=== PATIENT | male | born 1990 | race Caucasian/White ===

== ENCOUNTER 2017-04-29 10:58 | Emergency (ER) | payer BC, SELFPAY ==
[2017-04-29 11:02] VITALS: BP 142/73; PULSE 104; RESP 16; TEMP 36.6; O2SAT 96; BMI 23.8
--- NOTE | 2017-04-29 11:19 | CT_ITS ---
STUDY: CT ABDOMEN AND PELVIS WITH CONTRAST REASON FOR EXAM: Male, 26 years old. Abdominal pain. Bloody stools. RADIATION DOSAGE (If Supplied By Facility): CTDIvol = ( 11.08 ) mGy, DLP = ( 460.28 ) mGycm TECHNIQUE: Transaxial images were obtained from the dome of the diaphragm to the symphysis pubis with oral contrast. 100ML ml of Isovue 300 contrast was administered. Sagittal and coronal images were reconstructed. Individualized dose optimization techniques were used for this CT. COMPARISON: None. FINDINGS: The visualized lung bases are unremarkable. The visualized portions of the heart are within normal limits. Normal liver. Normal gallbladder and extrahepatic biliary system. Normal spleen. Normal pancreas. Normal bilateral adrenal glands. Normal right kidney. Normal left kidney. There is a small hiatal hernia. Normal small intestine. There is evidence of circumferential wall thickening of the descending colon with increased markings in the surrounding peritoneal fat. Mild degree of increased markings in the surrounding peritoneal fat in the region of the sigmoid colon. This is in keeping with colitis. The appendix is visualized and appears normal. Normal abdominal aorta. Normal inferior vena cava. Normal retroperitoneum. Normal urinary bladder. Normal abdominal wall. Normal osseous structures. CT/Abdomen/Pelvis WITH Contrast IMPRESSION: Findings in keeping with a colitis of the left hemicolon. Electronically Signed: Brodie Freitas MD at 14:04 EST Tel [phone], Service support ,
--- NOTE | 2017-04-29 11:20 | ED.VISSUMM ---
- ER Visit Summary Date of Service: 04/29/17 Chief Complaint: Blood in stool History of Present Illness: The patient is a 26 M presenting with blood in stool. This occurred last night. He has had several episodes of loose stool. He had some straining with this. He had nausea without vomiting. He complains of diffuse abdominal cramping. He states he has history of IBS. He states he has been on multiple medications but has not found medication that has worked for him. He has seen GI in the remote past. Physical Examination: Vitals are stable. Patient is afebrile. Alert no acute distress. HEENT exam is unremarkable. Neck is supple. Lungs are clear and equal bilaterally. Heart is regular rate and rhythm. Abdomen is soft diffuse tenderness, no rebound or guarding. Rectal: no external hemorrhoids, normal tone, no gross blood Extremities are unremarkable. Skin is warm and dry. Remainder of exam is unremarkable. Emergency Department Course and Treatment: He was given IV fluids, Zofran, morphine with improvement. CBC, chemistries unremarkable. Stool guaiac is negative. CT abdomen pelvis shows colitis of the left hemicolon. He is given Cipro and Flagyl. He is given Dr. Sherman for follow-up. On repeat exam his abdomen is soft and nontender with no rebound or guarding. He is feeling improved. He is advised signs and symptoms for which to return to the ED. Disposition: Discharge home Impression: Colitis This note was generated with [employer] dictation software. It may contain incorrect words, spelling, and punctuation that were not noted in review of the chart prior to signing ED Disposition - Plan for ED Patient: Chief Complaint: GI Bleed Referrals: NOT,DEFINED [NON-STAFF] -
[2017-04-29] MEDS: 0.9% Normal Saline 1,000 ML 1000 ML IV (11:31)
[2017-04-29] MEDS: Ondansetron 4 MG/2 ML Vial IV (11:31)
--- NOTE | 2017-04-29 11:39 | ED.RN ---
BASSAM SOLO,MEDIC WAS STARTING PT'S IV, PT BECAME NAUSEATED, CLAMMY SKIN, PALE, COOL COMPRESSES APPLIED, PT GOWN CHANGED DUE TO DIAPHORESIS BP AT THIS TIME 149/71, PT LYING IN BED CHEEKS PINK AT THIS TIME.
[2017-04-29 11:42] LABS: Absolute Lymphocyte Count 1.48 X10^3/ul (0.83-4.51); Absolute Neutrophil Count 5.9 X10^3/uL (2.0-7.7); Basophil# 0.05 X10^3/uL; Basophil% 0.6 % (0-1); Eosinophil# 0.25 X10^3/uL; Eosinophils% 2.9 % (0-5); Hematocrit 47.7 % (40-54); Hemoglobin 16.6 g/dl (13.0-16.5); Lymphocyte # 1.48 X10^3/ul (4.0); Lymphocyte % 17.2 % (19-41); Mean Corp Hgb Conc 34.8 g/gl (32-36); Mean Corpuscular Hgb 30.9 pg (27.0-32.0); Mean Corpuscular Volume 88.7 fL (80-94); Mean Platelet Vol. 10.9 fl (6.2-12.0); Monocyte# 0.95 X10^3/uL; Neutrophil # 5.86 X10^3/uL (2.7-7.7); Neutrophil % 68.2 % (47-70); Platelet Count 175 K/mm3 (150-450); RBC Distribution Width CV 12.6 % (11.6-14.6); Red Blood Count 5.38 M/mm3 (4.6-6.2); White Blood Count 8.6 K/mm3 (4.4-11.0)
[2017-04-29 11:43] LABS: POSITIVE COUNT NO; POSITIVE DIFFERENTIAL NO; POSITIVE MORPHOLOGY NO
[2017-04-29 11:48] LABS: Anion Gap 6 (5-15); BUN 12 mg/dL (7-18); BUN/Creat Ratio 11.2 RATIO (10-20); Calcium,Total 9.5 mg/dL (8.5-10.1); Chloride 103 mmol/L (98-107); Creatinine, Serum 1.07 mg/dL (0.70-1.30); EST Glomerular Filtration Rate 88 mL/min (>60); Est Glom Filt Rate - Afr Amer 107 mL/min (>60); Estimated Creatinine Clearance 97.81 ml/min; Glucose 90 mg/dL (74-106); Potassium 4.2 mmol/L (3.5-5.1); Sodium Level 139 mmol/L (136-145)
[2017-04-29 11:56] LABS: Partial Thromboplast Time 30.1 Seconds (24.1-36.2)
[2017-04-29 13:27] VITALS: BP 140/67; PULSE 88; RESP 16; O2SAT 96
--- NOTE | 2017-04-29 15:22 | ED.DEP ---
ED Disposition - Plan for ED Patient: Chief Complaint: GI Bleed Instructions: ED IBS Prescriptions: Ondansetron [Zofran Odt] 4 mg PO Q8H PRN PRN #10 tablet PRN Reason: Nausea Metronidazole [Flagyl] 500 mg PO Q8 #21 tablet Ciprofloxacin [Cipro] 500 mg PO BID #14 tablet Referrals: NOT,DEFINED [NON-STAFF] - Rodrigo Sherman MD [STAFF PHYSICIAN] - Balaji Sandhu III, MD [STAFF PHYSICIAN] -
[2017-04-29 15:33] VITALS: BP 135/70; PULSE 82; RESP 16; O2SAT 98
[2017-04-29 15:34] VITALS: BP 135/70; PULSE 82; RESP 16; O2SAT 98
[2017-04-29] MEDS: Ciprofloxacin 500 MG Tablet PO (15:36)
== END 2017-04-29 15:40 | disposition home or self-care (01) ==
PROVIDERS: Emergency Provider Emergency Medicine
DX: K52.9 Noninfective gastroenteritis and colitis, unspecified (principal); R11.0 Nausea
CPT/HCPCS: 74177; 80048; 82274; 85025; 85730; 96361; 96374; 96375; 99284; J7030; Q9967; A4216; J2405

== ENCOUNTER → 2017-05-08 14:41 | Outpatient (CLI) | payer BC, SELFPAY ==
[2017-05-08 16:18] LABS: CRP < 2.90 mg/L (0.0-3.0)
[2017-05-10 16:09] LABS: Endomysial Antibody IgA Negative (Negative)
[2017-05-11 08:31] LABS: Immunoglobulin A 159 mg/dL (90-386); t-Transglutaminase IgA <2 U/mL (0-3)
== END ==
PROVIDERS: Visit Provider Internal Medicine Gastroenterology
DX: R10.9 Unspecified abdominal pain (principal); R19.7 Diarrhea, unspecified
CPT/HCPCS: 36415; 82784; 83516; 86140; 86255

== ENCOUNTER → 2017-05-10 16:20 | Outpatient (CLI) | payer BC, SELFPAY ==
--- NOTE | 2017-05-10 13:03 | COLBX_PTH ---
PATIENT: RENEE GILES LOC: [facility] U#:[id number] AGE/SX: 34/M ROOM: RE05/10/[address]: Dr. Rodrigo Sherman MD : 1990 BED: DIS: SPEC #: [id number] RECD: 05/10/17 15:48 STATUS: MARIAM IVY #: [id number] REGGIE: 05/10/17 13:[address]: Rodrigo Sherman DEPT: SURGICAL PATHOLOGY RECD BY: Andrea Sharma ENTERED: 05/13/17 08:07 SP TYPE: COLON BX OTHR DR: No Primary Care Phys [facility] Tissues: A - Ileum, NOS B - COLON BIOPSY C - Sigmoid colon biopsy Procedures: Surgery Specimen Level IV HEADER OPERATION: Colonoscopy with polypectomy PRE-OP DIAGNOSIS: Diarrhea TISSUE SUBMITTED: A ? Terminal ileum biopsies, rule out Crohn?s, B ? Right and left colon biopsies, rule out microscopic colitis, C ? Sigmoid polyp, rule out adenoma MICROSCOPIC DIAGNOSIS A. Terminal ileum, biopsy: Fragments of small intestinal mucosa, no pathologic diagnosis. B. Right and left colon, biopsy: Fragments of colonic mucosa, no pathologic diagnosis. C. Sigmoid polyp, polypectomy: Tubular adenoma. Fragments of fecal material. DOMINGUEZ:nancy 05/14/17 MICROSCOPIC DESCRIPTION Slides are reviewed. GROSS DESCRIPTION A - Received in fixative is one container labeled with the patient's name and designated terminal ileum biopsy. The specimen consists of multiple irregular fragments of light irwin soft tissue that in aggregate measure 1 x 0.2 x 0.1 cm. The specimen is totally submitted in one cassette. B - Received in fixative is one container labeled with the patient's name and designated right and left colon biopsy. The specimen consists of multiple irregular fragments of light irwin soft tissue that in aggregate measure 1.5 x 0.2 x 0.1 cm. The specimen is totally submitted in one cassette. C - Received in fixative is one container labeled with the patient's name and designated sigmoid polyp. The specimen consists of one irregular fragment of light irwin soft tissue that measures 0.2 x 0.2 x 0.1 cm. The specimen is totally submitted in one cassette. / DOMINGUEZ:nancy 05/13/17 TC:1 CPT: 78600 x3
== END ==
PROVIDERS: Visit Provider Internal Medicine Gastroenterology
DX: R19.7 Diarrhea, unspecified (principal)
CPT/HCPCS: 88305

== ENCOUNTER 2019-01-27 05:22 | Emergency (ER) | payer BC, SELFPAY ==
[2019-01-27 05:23] VITALS: BP 141/96; PULSE 65; RESP 16; TEMP 36.5; O2SAT 98; BMI 24.6
[2019-01-27 05:32] VITALS: TEMP 36.5
--- NOTE | 2019-01-27 05:34 | ED.RN ---
PT STATES HE HAS THOUGHTS ABOUT HURTING HIMSELF BUT HAS NEVER ACTED ON THEM, HE STATES HE DOES NOT HAVE A PLAN, HAS NEVER ATTEMPTED SUICIDE IN THE PAST, AND SEES A COUNSELOR FOR THE THOUGHTS. HIS MEDICATIONS WERE CHANGED YESTERDAY FROM GABAPENTIN TO PAXIL PART OF HIS TREATMENT.
[2019-01-27] MEDS: 0.9% Normal Saline 1,000 ML 1000 ML IV (05:53)
[2019-01-27] MEDS: Ondansetron 4 MG/2 ML Vial IV (05:53)
--- NOTE | 2019-01-27 06:03 | ED.VISSUMM ---
- ER Visit Summary Date of Service: 01/27/19 Chief Complaint: Vomiting and diarrhea History of Present Illness: The patient is a 28 M who states that this past Saturday he went out and drink alcohol. The of the night he was vomiting. Vomiting continued Saturday and Saturday. He states that he was unable to work yesterday. In the overnight hours he began to have diarrhea today. Denies any blood in the vomit or the stool. No fevers but does note that he has been waking up with sweats. He states he has a lot of anxiety and sees a counselor for that. This is making things very stressful for him. 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 Sherman and has had 2 colonoscopies. He denies any significant abdominal pain but does note some cramping prior to bowel elimination Physical Examination: Afebrile vital signs are stable Gen: Well-nourished well-developed Head: Normocephalic atraumatic Eyes: Perrl EOMI ENT: TMs clear no rhinorrhea moist mucous membranes Neck: Supple no lymphadenopathy no JVD nontender CVS: Regular rate rhythm no murmurs normal S1-S2 Respiratory: No distress clear to auscultation bilaterally chest nontender Abdomen: Soft nontender nondistended normal bowel sounds no masses Back: Nontender Extremity: Nontender no edema Skin: Normal color no rash Neuro: alert orientated ?3 CN II-XII intact normal strength sensation reflexes gait cerebellar Psych: Patient does appear anxious. No suicidal ideation or homicidal Test Results: CBC was normal. Chemistries normal. Liver enzymes showed an ALT of 62 lipase was 110. Emergency Department Course and Treatment: IV fluids and Zofran. Patient states that with his anxiety he thinks that that is most likely cause of his vomiting his diarrhea that may be a may also be viral. They are wondering about other anxiolytics. He currently sees somebody for his anxiety and depression in fact saw them yesterday and was started on Paxil. I will defer to them they want to start pill in the pocket medications like Xanax or Ativan. The interim I will write for Zofran and would recommend Imodium. Continued oral hydration. Patient called me back into the room and states he does not feel any better than when he came in. I will give him a dose of Ativan here. But again I will not be prescribing this on an outpatient basis. Impression: 1. Gastroenteritis 2. Generalized anxiety disorder This note was generated with [employer] dictation software. It may contain incorrect words, spelling, and punctuation that were not noted in review of the chart prior to signing ED Disposition - Plan for ED Patient: Disposition: Home or Assisted Living Instructions: VOMITING AND DIARRHEA, Nonspecific (Adult) Prescriptions: Ondansetron [Zofran Odt] 4 mg PO Q8H PRN PRN #14 tab PRN Reason: Nausea Prescription Printed Referrals: Balaji Sandhu III, MD [STAFF PHYSICIAN] - (as needed for primary care)
[2019-01-27 06:05] LABS: Absolute Lymphocyte Count 2.31 X10^3/uL (0.83-4.51); Basophil# 0.06 X10^3/uL; Basophil% 0.7 % (0-1); Eosinophil# 0.22 X10^3/uL; Eosinophils% 2.7 % (0-5); Hematocrit 51.8 % (40-54); Hemoglobin 17.5 g/dL (13.0-16.5); Lymphocyte # 2.31 X10^3/ul (4.0); Lymphocyte % 27.9 % (19-41); Mean Corp Hgb Conc 33.8 g/dL (32-36); Mean Corpuscular Volume 88.9 fL (80-94); Mean Platelet Vol. 10.6 fl (6.2-12.0); Monocyte# 0.64 X10^3/uL; Monocyte% 7.7 % (0-10); NRBC Flagged by Analyzer 0 % (0-5); Neutrophil # 5.02 X10^3/uL (2.7-7.7); Neutrophil % 60.6 % (47-70); Platelet Count 212 K/mm3 (150-450); RBC Distribution Width SD 38.7 fl (35.1-43.9); Red Blood Count 5.83 M/mm3 (4.6-6.2); White Blood Count 8.3 K/mm3 (4.4-11.0)
[2019-01-27 06:23] LABS: AST(SGOT) 20 U/L (15-37); Alanine Aminotransfer ALT/SGPT 62 U/L (16-61); Albumin, Serum 4.5 g/dL (3.2-5.0); Alkaline Phosphatase 67 U/L (45-117); Anion Gap 5 (5-15); BUN 15 mg/dL (7-18); BUN/Creat Ratio 13.5 RATIO (10-20); Calcium,Total 9.5 mg/dL (8.5-10.1); Chloride 105 mmol/L (98-107); Creatinine, Serum 1.11 mg/dL (0.70-1.30); EST Glomerular Filtration Rate 84 mL/min (>60); Est Glom Filt Rate - Afr Amer 101 mL/min (>60); Estimated Creatinine Clearance 92.63 ml/min; Globulin 3.8 g/dL (2.2-4.2); Glucose 104 mg/dL (74-106); Lipase 110 U/L (73-393); Potassium 3.6 mmol/L (3.5-5.1); Protein, Total 8.3 g/dL (6.4-8.2); Sodium Level 140 mmol/L (136-145)
[2019-01-27] MEDS: LORazepam 2 MG/ML Syringe 1 MG IV (07:04)
[2019-01-27 07:19] VITALS: BP 136/77; PULSE 76; RESP 18; O2SAT 99
== END 2019-01-27 07:54 | disposition home or self-care (01) ==
PROVIDERS: Emergency Provider Emergency Medicine
DX: K52.9 Noninfective gastroenteritis and colitis, unspecified (principal); F41.1 Generalized anxiety disorder; F32.9 Major depressive disorder, single episode, unspecified
CPT/HCPCS: 80048; 80076; 83690; 85025; 96361; 96374; 96375; 99283; J7030; A4216; J2405

== ENCOUNTER 2019-01-30 09:00 | Outpatient (RCR) | payer BC, SELFPAY ==
--- NOTE | 2019-01-30 09:05 | BH.SGPN.GN ---
Behaviors/Verbalizations/Mental Status: [] Eye contact is good. Motor activity is appropriate. Appearance is casual. Speech is Appropriate. Mood is anxious. Affect is congruent. Thoughts are linear and logical. No evidence of psychosis. Reviewed daily check in sheet and no reports of suicidal ideations or intent. Client Response/Progress/Benefit: [] Pt spoke when prompted. This was pt's first group in IOP. He introduced himself to the group and stated that he was in IOP to help with his anxiety and depression. Discussed how his emotions have impacted his daily functioning stating this is my last resort. Group was welcoming and provided some feedback and encouragement. No progress noted. Will continue in IOP to maintain safety, improve functioning, stabilize mood, and prevent decompensation. Narrative Note: []
--- NOTE | 2019-01-30 11:25 | BH.SGPN.GN ---
Behaviors/Verbalizations/Mental Status: []Client alert and oriented, neatly dressed and groomed. Eye contact good. Motor activity appropriate. Speech within normal limits. Affect constricted, mood anxious. Thoughts linear, logical, no signs of hallucinations or delusions. Client Response/Progress/Benefit: []Client responded well to session, engaged throughout and providing ideas during group brainstorming. Client appeared to connect with the activity from second group and helped the group identify benefits of having a strong foundation of internal and external coping skills. Client shared he currently is relying mainly on external supports and recognizes he needs healthier internal coping skills. Client reported he is an ?adrenaline junky? so some of his coping skills in the past have been unhealthy. Client helped the group discuss the different categories of coping skills and provided examples. Client reported it is important to have a variety of coping skills. Client created a coping skills ?menu? for the five categories of coping skills. Client selected listening to music, doing something he?s passionate about, playing with pets, positive self-talk, and asking himself ?would I say this to someone I love.? Client appeared to benefit from increasing his repertoire of healthy coping skills. Client?s first day of IOP. Will continue to prevent decompensation and learn healthy coping skills. Narrative Note: []
--- NOTE | 2019-01-30 12:37 | BH.COMM ---
Communication Note - Communication with Client Communication Note: met with pt to complete inital paperwork. Completed [place] Suicide Risk assessment. No imminent risk noted. No active suicidal ideations, plan, or intent. Motivated for treatment. Hopeful. Spoke with pt after 1st day in IOP. No concerns noted. Agreeable to return and felt first day was beneficial. Will meet with psychiatrist next business day.
--- NOTE | 2019-01-30 20:00 | BH.SGPN.GN ---
Behaviors/Verbalizations/Mental Status: [] Eye contact is good. Motor activity is appropriate. Appearance is casual. Speech is Appropriate. Mood is anxious. Affect is congruent. Thoughts are linear and logical. No evidence of psychosis. Client Response/Progress/Benefit: [] Pt was attentive during group discussion and was an active participant in group activity. Attentive during psycho-education. Worked with peers to define coping skills which included; skills to use to get us through difficult times, techniques to manage emotions, and reactions to lessen an emotional state. Group also worked together to identify how we learn our coping skills through up-bringing, habits, watching our support, trial/error, TV, and counseling. Group discussed that not all coping skills are healthy and identified common unhealthy coping skills such as; isolating, avoidance, substance abuse, using anger as a release, self-harm, reassurance-seeking, sleep, eating, and negative self-talk. Pt participated in group activity with peers. After the group they related the activity to coping skills stating that when developing coping skills it is important to have both internal and external coping skills to help. Pt benefited from increased insight and education on healthy vs unhealthy coping and internal vs external coping skills. Narrative Note: []
--- NOTE | 2019-02-02 09:05 | BH.SGPN.GN ---
Behaviors/Verbalizations/Mental Status: [Eye contact is fair to good. Motor activity is appropriate. Appearance is casual. Speech is Appropriate rate and tone. Mood is anxious, depressed. Affect is congruent. Thoughts are linear and logical. No evidence of psychosis. Reviewed daily check in sheet and pt reports SI as a 1/5 denies any active plan, or intent. Will follow-up with individual therapist for further assessment. ] Client Response/Progress/Benefit: [Pt responded well to session, engaged throughout and open to processing with the group. Pt indicated current emotion as ?hopeful? and discussed that this is because he is happy to finally be addressing his mental health problems and seek help. 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 Pt noted that he was able to make it through without doing so by drinking water and reminding himself of his goals for himself. Pt went on to identify this as a mental health win and shared an additional win as getting to work this morning without a problem as this has been difficult in the past. Pt appeared to benefit from support and structure of group environment. Expressed connecting with fellow participants struggling with similar stressors and noted relating to difficulties in coping during the Holiday season. Shared plans to spend time with his cousin to prevent unhealthy coping. Pt progress noted in application of calming skills. He is recommended continued IOP tx to prevent decompensation, decrease depression, and promote ongoing application of healthy internal coping skills.] Narrative Note: []
--- NOTE | 2019-02-02 10:10 | BH.SGPN.GN ---
Behaviors/Verbalizations/Mental Status: []Client alert and oriented, casually dressed and groomed. Eye contact good. Motor activity appropriate. Speech within normal limits. Affect congruent, mood anxious. Thoughts linear, logical, no signs of hallucinations or delusions. Client Response/Progress/Benefit: []Client responded well to session, taking notes and contributing to discussion at times. Client connected with the group topic of crisis and did well to work with group to define crisis. Group identified examples of potential crisis to include unexpected loss, , and hardships out of one?s control. Client reported the smallest thing could send someone into crisis. Connected with discussion on how coping with external crisis by using unhealthy coping skills could lead to personal crisis. Group identified unhealthy coping skills to include; substance use, unhealthy relationships, not eating, avoidance, outbursts, and risk-taking behaviors. Group identified warning signs for crisis which included; isolating, loss of functioning, not finding darrell in life, and self-harm. Client completed the personal warning signs worksheet and identified crisis warning signs to include; negative thinking, substance abuse, and loss of motivation. Benefited from group by increasing awareness of crisis and personal warning signs. Client?s second day of IOP. Will continue to prevent decompensation and increase healthy coping skills. Narrative Note: []
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
--- NOTE | 2019-02-02 12:09 | BH.DR.ITP ---
Initial Treatment Plan - Patient Information Visit Information: ADMISSION DATE: EXPECTED LOS: 4-6 weeks - Problems/Symptoms Problem #1:: Anxiety Symptom:: Rumination, panic attacks, nausea and vomiting Problem #2:: Depression Symptom:: Sadness, fleeting SI, passive thoughts of . decreased energy and fatigue
--- NOTE | 2019-02-02 13:18 | BH.MDN_ITS ---
Multi-Disciplinary Note - Note 30-min Individual Time Started:: 12:10 Date: 02/02/19 Purpose of session/treatment goals addressed:: The purpose of this session was to gather information on client's current stressors, symptoms, and treatment goals. Another goal was to build rapport. Eye Contact:: Fair Motor Activity:: Appropriate Appearance:: Casual Speech:: Appropriate Mood:: Anxious Affect:: Constricted Thoughts:: Linear, Logical, No evidence of hallucinations/delusions noted Staff Interventions:: Therapist used active listening and open-ended questions to explore client's current stressors, symptoms, history, and treatment goals. Therapist used strengths perspective to build rapport and help client identify personal resilience factors. Client Response:: Client responded well to session, open to meeting with therapist. Client reported he is starting to feel better this week and reports belief that his mind is starting to get clearer. Client shared last week he abruptly quit smoking marijuana, drinking, and taking his gabapentin. As a result, client's anxiety became much worse and he ended up going to the ER. Client shared he was using marijuana to self-medicate, but now client realizes that it was only making his anxiety and ruminations worse. Client reported he does not plan to return to smoking, and he wants to learn healthier coping skills. Client shared he has a motivated mindset and reported when I make my mind up, I go all in on it. Client shared his mind can either be a positive or negative force. Client stated he has been able to motivate himself with his thinking, but he is also an overthinker about everything. Client connected with rumination and intrusive thinking. Client reported a previous therapist thought client maybe had pure obsessional OCD. Client stated that smoking mariju janina only made his ruminations and intrusive thoughts worse. Client receptive to discussion of treatment goals and he reported being open to having therapy homework in future sessions. Risks/Concerns:: Client reports last week having suicidal ideations when his anxiety was at its worst. Client described the thoughts as it wasn't like I had a plan, I just wanted out. Client denies any suicidal ideations, plan, or intent as of 02/02/19. Future oriented and hopeful for his future. Progress Toward Goals/Plan:: Due to client recently starting IOP, there is no progress to document currently. Client endorses anxiety, rumination, obsessive thoughts, passive thoughts of , a depressed mood, and low motivation. Client recently quit using marijuana which led to an exacerbation of anxiety and depressive symptoms within the last week. Client reported belief he was going through withdrawal last week as he stopped drinking, his gabapentin, and ma rijuana. Client identified his treatment goals to be learning how to cope with life stressors, reduce his overthinking, and improve motivation and become more optimistic. Will continue tx to prevent further decompensation, increase use of healthy coping skills, and reduce anxiety. Time Stopped:: 12:30
--- NOTE | 2019-02-02 13:51 | BH.MTP_ITS ---
Master Treatment Plan - Patient Information Program Physician:: Luma Meneses Primary Therapist:: Silvia Palma - Psychiatric Diagnoses Psychiatric Diagnoses:: Generalized anxiety disorder F41.1; major depressive disorder recurrent severe without psychosis F 33.2; marijuana withdrawal syndrome; Alcohol use disorder; marijuana use disorder Diagnosis Code(s):: F41.1; F33.2 - Estimated LOS Estimated LOS (in weeks):: 6 Problem/Goal #1 - Problem/Goal #1 Stated Goal:: Reduce overall frequency, intensity, and duration of anxiety and panic so that daily functioning is not impaired. Description of Barriers: Client reports having unrealistic, perfectionistic thinking which reinforces client's fear of failure. Client endorses negative core beliefs that reinforce depressive symptoms and cause low self-esteem. Client is recently sober from marijuana and alcohol. Client self-medicated for years and recognizes that he is addicted to dopamine. Client has kept his mental symptoms from his friends and stated he has beliefs that he should be able to solve problems on his own. Functional Impact: Client is a 28-year-old male with a history of MDD and STORMY. Client was referred to IOP following a crisis assessment on 01/28/19. Client had a crisis assessment due to overwhelming anxiety when client presented to the ER. Client reported he has been decompensating for the two weeks. Client currently endorses increased sleep, low energy, low motivation, hopelessness, isolative a nd avoidant behaviors, and fleeting suicidal ideations with methods. Client denies any active suicidal ideations, plans, or intent. Client endorses panic attacks, restlessness, uncontrollable worries, and intrusive thoughts. Client had been a heavy daily marijuana user until a week ago. Client reports he quit marijuana and alcohol cold turkey and he believes he is going through marijuana withdrawal. Client's symptoms are currently impacting his ability to function at his baseline as well as his social, occupational, and familial functioning. Goal Relevant Strengths/Supports: Client presents as a kind, intelligent, and motivated individual. Client reports he is determined which can be a good thing or a bad thing as client is able to follow through with things when he starts them. Client is open to going to AA meetings or participating in substance abuse counseling. Client has several close friends and family who are supportive. Client is active and has a dog. Client is connected with outpatient services. - Objectives Objective #1 Stated Objective: Client will learn and utilize 2-3 healthy coping strategies to manage anxiety and panic symptoms as shown by reduced DSM-5 cross-cutting symptom measure score for anxiety and reduced use of unhealthy coping skills (i.e smoking and drinking). Interventions: Through group and individual sessions, therapist will assist client in learning internal coping strategies to manage anxiety symptoms, along with helping client identify triggers. Therapist will help client identify strategies to replace smoking and prevent relapse. Discharge Criteria: Client will have achieved this goal when client?s DSM-5 sy mptoms for anxiety have decreased and he can verbalize and has practiced at least 2 healthy coping strategies. Target Date: 03/13/19 Review Date: 03/02/19 Status: open Objective #2 Stated Objective: Client will identify 2-3 cognitive distortions that lead to rumination and learn 2-3 ways to manage these thoughts to better manage anxiety. Interventions: Therapist will provide education on the most common cognitive distortions and teach client the connection between thoughts, emotions, and feelings. Therapist will assist client in identifying, challenging, and replacing dysfunctional thoughts with positive, more realistic thoughts. Therapist will use CBT and DBT techniques to help client gain awareness of thinking errors and learn how to more effectively handle negative thoughts. Therapist will also use self-compassion to help client set more realistic expect ations for himself. Discharge Criteria: Client will have accomplished this goal when can identify at least 2 cognitive distortions and at least 2 coping skills to manage negative thoughts. Target Date: 03/13/19 Review Date: 03/02/19 Status: open Problem/Goal #2 - Problem/Goal #2 Stated Goal:: Client will decrease depressive symptoms, passive thoughts of , and decreased energy due to Major Depressive Disorder. Description of Barriers: Client reports having unrealistic, perfectionistic thinking which reinforces client's fear of failure. Client endorses negative core beliefs that reinforce depressive symptoms and cause low self-esteem. Client is recently sober from marijuana and alcohol. Client self-medicated for years and recognizes that he is addicted to dopamine. Client has kept his mental symptoms from his friends and stated he has beliefs that he should be able to solve problems on his own. Functional Impact: Client is a 28-year-old male with a history of MDD and STORMY. Client was referred to [facility] following a crisis assessment on 01/28/19. Client had a crisis assessment due to overwhelming anxiety when client presented to the ER. Client reported he has been decompensating for the two weeks. Client currently endorses increased sleep, low energy, low motivation, hopelessness, isolative and avoidant behaviors, and fleeting suicidal ideations with methods. Client denies any active suicidal ideations, plans, or intent. Client endorses panic attacks, restlessness, uncontrollable worries, and intrusive thoughts. Client had been a heavy daily marijuana user until a week ago. Client reports he quit marijuana and alcohol cold turkey and he believes he is going through marijuana withdrawal. Client's symptoms are currently impacting his ability to function at his baseline as well as his social, occupational, and familial functioning. Goal Relevant Strengths/Supports: Client presents as a kind, intelligent, and motivated individual. Client reports he is determined which can be a good thing or a bad thing as client is able to follow through with things when he starts them. Client is open to going to AA meetings or participating in substance abuse counseling. Client has several close friends and family who are supportive. Client is active and has a dog. Client is connected with outpatient services. - Objectives Objective #1 Stated Objective: Client will learn and utilize 2-3 healthy coping strategies to better manage depressive symptoms as shown by a reduced DSM-5 score for depression. Interventions: Through group and individual sessions, therapist will help client identify triggers and warning signs of depression and emotional dysregulation including emotional, physical, and behavioral changes. Therapist will teach client various coping skills to manage his symptoms and give client tangible resources to use to regulate emotions. Therapist will use cognitive restructuring techniques and help client gain awareness of negative thoughts that reinforce depressive cycles. Therapist will help client incorporate behavioral activation and assist client in setting SMART goals. Discharge Criteria: Client will have met this goal when he can report learning and using at least 2 coping skills to manage depressive symptoms. Additionally, client will have met this goal when his DSM-5 scores reflect a reduction in symptoms. Target Date: 03/13/19 Review Date: 03/02/19 Status: open Objective #2 Stated Objective: Client will identify at least 2-3 negative self-talk messages used to reinforce depressive symptoms and replace thoughts with positive, realistic messages. Interventions: Therapist will help client identify distorted, negative thoughts that reinforce lack of motivation and depressive symptoms and replace with more realistic, affirmative messages. Therapist will use CBT to help client increase insight to the connection between thoughts, emotions, and behaviors. Therapist will encourage client to practice thought challenging. Discharge Criteria: Client will have achieved this goal when can verbalize at least 2 negative self-talk messages and effectively replace those thoughts with affirmative messages. Target Date: 03/13/19 Review Date: 03/02/19 Status: open
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
--- NOTE | 2019-02-04 10:02 | BH.SGPN.GN ---
Behaviors/Verbalizations/Mental Status: []Client alert and oriented, casually dressed and groomed. Eye contact good. Motor activity appropriate. Speech within normal limits. Affect constricted, mood anxious. Thoughts linear, logical, no signs of hallucinations or delusions. Client Response/Progress/Benefit: []Pt receptive of session, engaged throughout. He did well to work with the group to reflect on the quote and discussed the ways in which perspective can impact mental health and ability to make personal progress in life. Pt worked with group to identify how negative perspective can impact mental health which included: unrealistic expectations, self-sabotage, maintain depression and anxiety, overgeneralizing, increased distorted thoughts, and decreased self-confidence. Pt did well to engage in the challenge activity. Pt reported on his first day in IOP he was anxious so his perspective was more negative, but now his perspective is more positive when at IOP now that he is less anxious. Pt appeared to benefit from increasing understanding of mental health benefits of a positive perspective and potential consequences to progress when perspective is negative. Recommended continued IOP tx to increase healthy coping skills, identify and challenge distorted thoughts, and prevent decompensation. Narrative Note: []
--- NOTE | 2019-02-04 10:03 | BH.NA_ITS ---
Physical Data - Vital Signs Temperature: 98.1 F Pulse Rate: 72 Respiratory Rate: 16 Blood Pressure: 118/62 - Height/Weight Height: 1.7 m Weight:: 66.224 kg Weight in Pounds: 146.0 lbs Current Medication Compliance - Medication Compliance Do you take your medication as prescribed?: Yes Nutritional History - Appetite Nutritional Instructions:: If client shows signs of a swallowing problem, weight change of 10 pounds or more in the last month, or is on a diabetic diet, the physician will review and request a dietitian consult, as appropriate. All unintentional weight loss will be referred to the physician for decision on need for dietitian consult. Describe your appetite:: Fair Have you noticed a change in your eating habits lately?: Yes - states recently had a weight loss of 12lbs in one week Additional nutritional information:: Client states after recent weight loss, he is noticing an increase in his appetite back to normal and states n ausea/vomiting has subsided since he stopped using marijuana and drinking alcohol Functional Assessment - Sleep Pattern Describe any problems with sleeping: Client states sleep is improved, states he is sleeping 6-8 hours per night. Sensory/Communication Assess - Communication Problems Do you have difficulty understanding what people are saying?: No What is your primary language?: French Medical Problems/History - Respiratory Conditions Respiratory: Asthma Comments:: states he had asthma as a kid. States he has not used medication for it in several years. - Gastrointestinal Conditions Gastrointestinal: Nausea, Vomiting Comments:: client states was recently having nausea/vomiting while still using marijuana. States nausea/vomiting has subsided since he stopped using marijuana and alcohol one week ago. - Pain Assessment Do you have acute or chronic pain?: No Surgical History - Surgical History Have you had any surgeries? If so, list type and date:: Yes - double mastectomy for masses (benign) Substance Abuse - Substance Abuse Please describe substance abuse in the last 30 days:: marijuana use multiple times a day until one week ago when he quit. Mental Status Summary - Mental Status Significant Findings/Observations on Appearance and Mood:: Client is alert and oriented x 4. Client is appropriately groomed. He is cooperative with assessment, makes eye contact during conversation. Activity level normal. Clients speech clear, coherent and spontaneous at normal rate and volume. Client appears mildly anxious in conversation, no anger noted. Normal processing during conversation. Denies delusions or hallucinations. Judgement appears to be intact and attention and concentration good. Clients gait steady. Suicide Assessment - Suicidal Ideation Are you currently or have you been suicidal in the past?: No - client denies suicidal thoughts at this time Physician Notification: If Active suicidal thoughts/Will not contract for safety is checked, contact physician and document in the Physician Notification section below. Past Psychiatric History - MH Treatment Hx Past Psychiatric Medications:: Paxil, Celexa, Lexapro, Prozac, Wellbutrin, Xanax Age of first mental health symptoms: Client states he had depression at age 18. Client states looking back at my life though, I think I've always had anxiety. Current providers for mental health treatment (counselor, psychiatrist, registered nurse hh case manager, etc.): counseling with Maria Elena at [facility]. Client has been prescribed psychatric medication by Trish Ruiz. Fall Risk Assessment - Age Age: Less than 60 - Mental Status Mental Status: Willing & able to ask for assistance when needed - Physical Status Physical Status: No problems - Impairments Impairments: None - Elimination Elimination: Continent AND independent - Gait or Balance Gait or Balance: Walks independently - Hx of Falls History of falls in the past 6 months: No known history - Medications/Substances Medications/substances used within the past 24 hours or ordered to administer: None of the medications/substances list above - Total Score Total Points:: 0 RN Summary of Impressions - Impressions Recommendations: Include psychiatric and medical issues, treatment planning recommendations, and discharge planning needs. - Level of Care How do the client's current symptoms and functional deficits support need for this level of care?: Client has been having symptoms for the last few months of anxiety, with episodes of shortness of breathe, sweating, nausea, racing thoughts, panic, anhedonia and passive thoughts of suicide. Client states he has had a recent 12lb weight loss within a week. Client states stressors include relationship with his mother and a breakup with a girlfriend a year ago. Client states since he stopped using marijuana and alcohol in the last couple of weeks, his symptoms have improved significantly. Client states he is able to think about some of his problems and not dwell on them now. IOP will promote gains and prevent further decompensation while providing social support and skills training.
[2019-02-04 10:11] VITALS: BP 118/62; PULSE 72; RESP 16; TEMP 36.7
--- NOTE | 2019-02-04 11:00 | BH.SGPN.GN ---
Behaviors/Verbalizations/Mental Status: []Client alert and oriented, casually dressed and groomed. Eye contact good. Motor activity appropriate. Speech within normal limits. Affect constricted, mood anxious. Thoughts linear, logical, no signs of hallucinations or delusions. Client Response/Progress/Benefit: []Client responded well to session, attentive and engaged throughout session. Group discussed the mental health benefits of recognizing strengths which included; improved self-esteem, better coping skills, more willingness to change, and increased resilience. Group identified the barriers that have prevented them from acknowledging their strengths and successes. These barriers included; negative thoughts, minimization, invalidation, and one?s environment. Group identified strategies to overcome barriers that prevent them from seeing strengths. These strategies included; keeping track of progress, practicing self-reflection, practicing self-compassion, and challenging distortions. Client able to identify personal strengths he possesses which included; intelligence, wisdom, empathy, love of learning, athleticism, and ambition. Client reported these strengths can help improve his mental health because they increase motivation. Appeared to benefit from recognizing personal strengths and identifying strategies to overcome barriers. Will continue IOP tx to prevent decompensation of anxiety symptoms and increase healthy coping skills. Narrative Note: []
--- NOTE | 2019-02-06 09:05 | BH.SGPN.GN ---
Behaviors/Verbalizations/Mental Status: []Client alert and oriented, neatly dressed and groomed. Eye contact good. Motor activity appropriate. Speech within normal limits. Affect flat, mood anxious/depressed. Thoughts linear, logical, no signs of hallucinations or delusions. Reviewed client?s symptom tracker, no risk for suicidal ideation, plan, or intent as of 02/06/19. Client Response/Progress/Benefit: []Client responded well to session, receptive to feedback and attentive throughout. Client reports feeling ?tired and anxious? today. Client shared he woke up in a ?shitty mood? this morning and he almost cancelled coming to group this morning. Client reported he did not cancel because he realized that coming to group might give him an opportunity to get a different perspective or emotion and break out of his depressive cycle. Client recognized that using opposite action was a mental health win today. Client?s second mental health win was that he remains sober from marijuana, even over the holiday. Client reported his stressor is that he feels low energy today and he felt irritable yesterday because he could not smoke. Client acknowledged that there are things he can do today or learn during group that could help client regulate his emotions and challenge thinking. Appeared to benefit from connecting with peers rather than isolating this morning. Will continue IOP tx to prevent decompensation of anxiety and improve mood stability. Narrative Note: []
--- NOTE | 2019-02-06 10:10 | BH.SGPN.GN ---
Behaviors/Verbalizations/Mental Status: []Client alert and oriented, casually dressed and groomed. Eye contact good. Motor activity appropriate. Speech within normal limits. Affect constricted, mood dysthymic. Thoughts linear, logical, no signs of hallucinations or delusions. Client Response/Progress/Benefit: []Pt was an active participant in group activity and discussion. Shared insight on quote of the day. Group worked together to define goals and identify the benefits of developing goals which included: sense of purpose, can measure progress, learn from goals, keeps you moving forward, increases confidence, and increases motivation. Group also identified barriers to setting and accomplishing goals which include: no motivation, self-doubt, depression, feeling lost, and unrealistic expectations. Attentive during education on developing SMART goals. Stated it's important to be specific when making goals because if too broad will be hard to track progress. Benefited from increase awareness of goal-setting methods. Will continue in IOP to prevent decompensation, increase healthy coping, and improve daily functioning. Narrative Note: []
--- NOTE | 2019-02-06 11:11 | BH.SGPN.GN ---
Behaviors/Verbalizations/Mental Status: [Client alert and oriented, casually dressed and groomed. Eye contact to good. Motor activity appropriate. Speech within normal limits. Affect congruent, mood euthymic. Thoughts linear, logical, no signs of hallucinations or delusions. ] Client Response/Progress/Benefit: [Pt attentive throughout, contributed thoughts to discussion and provided supportive feedback to fellow participants. Engaged in creating own mental health SMART goal. Pt identified goal is to increase self-confidence by saying 3 positive things about himself daily over the next week. Pt reported this goal will benefit him by increasing ability to pursue and maintain positive relationships. Pt identified potential barriers to accomplishing goal to include: lack of motivation, self-doubt, negative past experiences, and not believing positives. Pt reported he will overcome barriers by using opposite action, setting reminders, and accepting that he can learn from past experiences. Seemed to benefit from identifying a SMART goal and coming up with strategies to overcome potential barriers. Pt to continue IOP to increase consistent application of healthy coping skills, decrease depression and anxiety, maintain gains, and prevent decompensation.] Narrative Note: []
== END 2019-02-07 23:59 ==
LOC: BHIOP 09:00
PROVIDERS: Referring Provider Psychiatry & Neurology Psychiatry; Visit Provider Psychiatry & Neurology Psychiatry
DX: F33.2 Major depressive disorder, recurrent severe without psychotic features (principal); F41.1 Generalized anxiety disorder; Z79.899 Other long term (current) drug therapy; F12.93 Cannabis use, unspecified with withdrawal; Z72.89 Other problems related to lifestyle
CPT/HCPCS: H0035; 90832; 90853

== ENCOUNTER 2019-02-09 09:00 | Outpatient (RCR) | payer BC, SELFPAY ==
[2019-02-08 01:21] VITALS: BP 118/62; PULSE 72; RESP 16; TEMP 36.7
--- NOTE | 2019-02-09 09:04 | BH.SGPN.GN ---
Behaviors/Verbalizations/Mental Status: [Eye contact is fair to good. Motor activity is appropriate. Appearance is casual, disheveled. Speech is Appropriate rate and tone. Mood is depressed and irritable. Affect is constricted. Thoughts are linear and logical. No evidence of psychosis. Reviewed daily check in sheet and pt reports SI as a 3/5 though denies any active plan, or intent. Willing to meet with individual therapist following group on this date in order to further assess for safety.] Client Response/Progress/Benefit: [Pt responded well to session, engaged throughout open to processing with the group despite reports of increase irritability and desire to isolate. Pt indicated current emotion as ?irritated? and discussed that this is due to beginning to get used to experiencing his emotions without numbing himself with substances. Indicated that although this is uncomfortable and stressful, he knows it is necessary for continued progress in improving his mental health. Did well to challenge himself to identify small mental health wins. Wins included getting through the holiday sober and continuing to use self-reflection as a means of motivating himself not to return to old unhealthy habits. Receptive of feedback provided by group and appearing to benefit from support and structure of group environment. Pt progress in self report of maintaining sobriety and leaning on family for support. Pt recommended continued IOP tx to prevent decompensation, decrease depression and anxiety, and promote ongoing application of healthy coping skills.] Narrative Note: []
--- NOTE | 2019-02-09 10:15 | BH.SGPN.GN ---
Behaviors/Verbalizations/Mental Status: [] Eye contact is good. Motor activity is appropriate. Appearance is casual. Speech is Appropriate. Mood is depressed. Affect is flat. Thoughts are linear and logical. No evidence of psychosis. Client Response/Progress/Benefit: [] Limited participation in group discussion however was attentive during group discussions. Active during group participation. Group worked together to identify several definitions which included; something that you continuously fall into, engaging in choices that keep us stuck, unexpected dangers, and unforeseen difficulty. Attentive on psycho-education on the impact of how one galdino with or manages pitfalls in regards to mental health. Group worked together to identify what keeps us stuck or vulnerable to pitfalls which included; decreased self-awareness, poor self-esteem, unhealthy coping, negative thoughts, being comfortable in the pitfall, fear of change, and self-sabotage. Benefited from increased awareness on the impact that pitfalls can have on mental health. Narrative Note: []
--- NOTE | 2019-02-09 11:18 | BH.SGPN.GN ---
Behaviors/Verbalizations/Mental Status: []Client alert and oriented, disheveled appearance. Eye contact fair. Motor activity appropriate. Speech within normal limits. Affect flat, mood depressed. Thoughts linear, logical, no signs of hallucinations or delusions. Client Response/Progress/Benefit: []Client receptive of session, engaged throughout AEB client taking notes and participating in discussion. Processed activity with group and connected it to overcoming personal pitfalls in life. Client completed a worksheet where he identified personal pitfalls impacting mental health progress. Identified pitfalls as: procrastination, blaming himself, drugs and alcohol, ruminating, and low self-esteem. Client recognized that with awareness and use of healthy coping skills, it is possible to prevent or better manage pitfalls. Attentive during psychoeducation on strategies to overcome pitfalls. Client stated he will work on preventing pitfalls by practicing positive self-talk. Benefited from identifying personal pitfalls and strategies to overcome these pitfalls. Progress noted as client has been consistent with attendance and participation in IOP. Will continue IOP tx to prevent decompensation of symptoms and to increase use of healthy coping skills. Narrative Note: []
--- NOTE | 2019-02-09 13:44 | BH.MDN ---
Multi-Disciplinary Note - Note 30-min Individual Time Started:: 12:23 Date: 02/09/19 Purpose of session/treatment goals addressed:: The purpose of this session was to address current symptoms, stressors, and negative thoughts. Another goal was to set small behavioral activation goals and practice cognitive restructuring. Eye Contact:: Good Motor Activity:: Appropriate Appearance:: Disheveled Speech:: Soft Mood:: Anxious, Depressed Affect:: Constricted Thoughts:: Linear, Logical, No evidence of hallucinations/delusions noted Staff Interventions:: Therapist used active listening and open-ended questions to explore client's current stressors, symptoms, and negative thoughts. Therapist provided psychoeducation on cognitive distortions, depression, and maintenance cycles. Therapist provided emotional valiation and support to normalize client?s smyptoms and negative thought patterns. Therapist taught client the relationship between thoughts, emotions, and behaviors and how these impact one?s mental health. Therapist used self-compassion and cognitive restructuring techniques to combat client?s distorted expectations of self. Therapist helped client set a behavioral activation goal for today and gave client homework to watch a TedTalk. Client Response:: Client responded well to session, open to meeting with therapist. Client reported he has been feeling more depressed and irritated lately. Client contributes this to no longer uses substances to cope with his emotions and being triggered over the holidays. Client shared he has been having negative thoughts of I'm never going to have my own family and I'm not good enough. Client receptive to learning about depression, cognitive distortions, and maintenance cycles. Client reported that learning about this makes me feel better because I thought it was just me. Client connected with intrusive thinking, perfectionism, and fear of failure as well. Client reported his fear of failure and unrealistic expectations resulted in client quitting a sport he was very talented at in high school. Client reports belief that quitting wrestling was when all of this started in regards to his mental health symptoms. Client receptive to learning about ways one can break out of depressive maintenance cycles. Client and therapist worked on challenging client's distorted thoughts that occured over the weekend. Therapist taught client some thought challenging strategies to help client begin combating distortions. Client receptive to setting a behavioral activation goal and reports plan to walk his dog tonight. Client will also watch a TedTalk on managing depressive symptoms. Risks/Concerns:: Client's daily symptom tracker scores were above his baseline time at 3/5 for thoughts of suicide and 1/5 for risk. Client denies any active suicidal ideations, plan, or intent as of 02/09/19. Client states these thoughts are intrusive in nature and that he would never do that. Client denies access to weapons and reports ability to maintain safety. Client does not present as an immediate threat to himself or others. Future oriented throughout session, plans to call a friend and go to work [employer]. Progress Toward Goals/Plan:: Client's second week in IOP and seems to be assimilating well into the group setting. Reports increased awareness of symptoms, negative thoughts reinforcing symptoms, and unhealthy coping skills. Client shared he has been trying to apply coping skills he has learned in group sessions and he continues to be receptive to learning. Client reported he is experiencing increased irritability and depressive symptoms which client reports belief is due to no longer using substances. Client continues to endorse a depressed mood with irritability, rumination, low self-esteem, perfectionistic expectations, and negative thinking. Client will continue IOP tx to prevent decompensation, improve mood stability, and reduce negative thinking that reinforces depression. Time Stopped:: 12:55
--- NOTE | 2019-02-11 09:05 | BH.SGPN.GN ---
Behaviors/Verbalizations/Mental Status: [] Eye contact is good. Motor activity is appropriate. Appearance is neat. Speech is Appropriate. Mood is depressed. Affect is flat. Thoughts are linear and logical. No evidence of psychosis. Reviewed daily check in sheet and pt reports 3/5 for suicidal thoughts and 2/5 for intent. Therapist notified. Client Response/Progress/Benefit: [] Pt participated when prompted. Emotion for today is blank. Distracted. Reports that he is learning more about the reasons behind his depression and anxiety. Also learning how his extended cannabis use has impacted his Dopamine and credits this to a video that a peer had recommended. Overall reports increased depression and irritability this week. Trying not to self-medicate with cannabis. Group provided encouragement, support, and feedback which was beneficial. No progress noted. Will continue in IOP to maintain safety, stabilize mood, increase healthy coping, and prevent decompensation. Narrative Note: []
--- NOTE | 2019-02-11 10:20 | BH.SGPN.GN ---
Behaviors/Verbalizations/Mental Status: []Client alert and oriented, neatly dressed and groomed. Eye contact good. Motor activity appropriate. Speech within normal limits. Affect flat, mood depressed. Thoughts linear, logical, no signs of hallucinations or delusions. Client Response/Progress/Benefit: []Client responded well to session, attentive and engaged throuhgout session, taking notes. Client appeared to connect with the topic of fear of failure. Client agreed with peers that it is possible for failure to actually lead to success, but it is not easy to overcome failures. Client nodded that he has struggled with fear of failure throughout his life. Group reported if one only focuses on past failures and mistakes it can lead to negative thinking, unrealistic expectations, and negative self-talk. Group identified the impacts of fear of failure on mental health which included: not trying, low self-esteem, depending too much on others, avoidance, hopelessness, and increased mental health symptoms. Client agreed with peers that in order to move past failure it is important to challenge one?s perspective on failure. Client seemed to benefit from increased awareness of how fear of failure can impact mental health. Client will continue IOP tx to prevent decompensation of depressive symptoms and decrease negative self-talk. Narrative Note: []
--- NOTE | 2019-02-11 11:21 | BH.SGPN.GN ---
Behaviors/Verbalizations/Mental Status: [Client alert and oriented, casually dressed and appropriately groomed. Eye contact good. Motor activity appropriate. Speech within normal limits. Affect congruent, mood depressed, irritable. Thoughts linear, logical, no signs of hallucinations or delusions.] Client Response/Progress/Benefit: [Client responded well to session, active participant and willing to engage. Client worked with the group to complete the challenge activity and shared that support and guidance from fellow participants helped to accomplish the activity. Client completed the fear of failure worksheet and reported that fear of failure is keeping him from trying new things or forming additional relationships. Reported barriers for overcoming fear of failure are past experiences, high expectations, absolute thinking, and negative mindset. Client shared he has been able to learn from setbacks in the past and the positive thing past failures have taught him is that failure can create a more positive future. Client selected a goal to help overcome fear of failure. Client?s goal is to ask himself if ruminating is helping him when catching himself doing it. Client appeared to benefit from gaining awareness and setting a goal to reduce fear of failure. Client showing progress in increasing insight and improving engagement levels. Pt recommended continued IOP tx to improve healthy change behaviors, decrease depression, and increase application of skills learned.] Narrative Note: []
--- NOTE | 2019-02-11 13:37 | PCM.BH.PN ---
Progress Note Progress Note: History of Present Illness/Interim History: [] Patient is a 28-year-old male with a history of depression and anxiety who is seen in follow-up at the [facility] IOP program. I last saw the patient 10 days ago. He complains that he has been feeling very depressed lately. He states that he felt great last week he thinks he was on the high of getting sober. At that time he did not want any more medication but he states that now he does. He describes his mood as sad, hopeless and and feelings of worthlessness. He has passive thoughts that he would not care if he . He has fleeting thoughts of suicidal ideation with different plans but none are definite. He feels this suicidal ideation is somewhat passive and not active. His anxiety is better and he feels some of the anxiety and vomiting was due to withdrawal from marijuana. His sleep is okay now he gets about 6 hours a night during the week and a little more on the weekends. He has some fatigue but if he takes a nap he still wakes up feeling panicked. He is taking his gabapentin but does not believe it is really benefiting him so he requests to wean the gabapentin. Current Psychiatric Medications: [] Gabapentin 300 mg p.o. twice daily Mental Status Examination: [] patient Is a 28-year-old male who is casually dressed and groomed with good hygiene. He is cooperative and pleasant during the interview. He has no psychomotor agitation or retardation. He has good eye contact and his speech is normal rate and rhythm with no pressure. His mood is depressed. His affect is constricted and consistent with depression. His thought process is goal-directed and organized. His thought content: He does endorse passive suicidal ideation with variable plans but none definite. He denies active suicidal ideation, homicidal ideation. He denies hallucinations or delusions. Judgment is intact. Insight: Some present. Impulsivity low. Diagnoses: [] Whittier I: [] Major depressive disorder recurrent severe without psychosis; generalized anxiety disorder; alcohol use disorder; marijuana use disorder (sober x2-1/2 weeks) Whittier II: [] Deferred Whittier III: [] 3 of colitis and diarrhea Whittier IV:[]] Memory support and work issues Plan: [] Patient will continue the IOP program as the support, structure, education individual and group therapy are hopefully preventing worsening of the patient's symptoms which might require hospitalization. He felt safe during the interview and if in any time he does not feel safe he agrees to tell us at the IOP program or go to the emergency room. The risks, options, possible side effects of the medications were discussed with the patient and he understands and accepts these. He agrees to start Effexor XR 37.5 mg. He will take 1 a day for 5 days and then he will increase to 2 p.o. daily or 75 mg. A prescription was sent in for this medication. I will see the patient in 2 weeks. Also understands that it is important that he remains sober from all substance use.
--- NOTE | 2019-02-13 09:03 | BH.SGPN.GN ---
Behaviors/Verbalizations/Mental Status: [Eye contact is good. Motor activity is appropriate. Appearance is casual, grooming fair to good. Speech is Appropriate rate and tone. Mood is depressed, irritable. Affect is congruent. Thoughts are linear and logical. No evidence of psychosis. Reviewed daily check in sheet and pt reports SI as 3/5, denies active plan, current intent is 2/5. Pt reports ability to maintain safety at this time and indicates willingness to meet with individual therapist to further assess for safety and safety plan for weekend.] Client Response/Progress/Benefit: [Pt responded well to session, mostly engaged throughout and open to processing with the group. Pt indicated current emotion as ?fed up?. He discussed that this is due to ongoing difficulties in finding an effective psychiatric medication and feeling as though he is ?being used as a guinea pig?. Additionally, pt noted frustration regarding ongoing difficulties with finding healthy supports. He was receptive of the supportive feedback and encouragement provided by group environment. Pt did well to challenge himself to identify small mental health wins which included continuing to remain sober despite struggling with urges to drink. Additional win is that pt used opposite action to get to group this morning despite not wanting to. Pt progress continues to be impacted by pt difficulties in managing sx of depression and limited supports available. Pt recommended continued IOP tx to prevent decompensation, and promote application of healthy skills learned, and continue to promote healthy change behaviors.] Narrative Note: []
--- NOTE | 2019-02-13 10:30 | BH.SGPN.GN ---
Behaviors/Verbalizations/Mental Status: []Pt alert and oriented, eye contact good, casually dressed, motor activity appropriate, speech normal rate and tone, mood dysthymic, constricted affect, thoughts linear and intact, no evidence of delusions or hallucinations. Client Response/Progress/Benefit: []Client engaged participant as shown by client?s contribution to discussion and helpful insight. During discussion about quote client stated if don't engage in self-care it will result in you feeling crappy which will negatively impact relationships because will treat others crappy. Client participated in the discussion of the common myths about self-care including self-care is selfish, easy, makes us weak, and always fun. Client worked with group to debunk the myths about self-care. Client stated self-care is not easy because it's hard to challenge negative thoughts, which is a part of self-care. Client seemed to benefit from increased awareness of the importance of self-care. Client showing progress as shown by increased awareness of unhealthy thought patterns and use of healthy coping skills. Will continue tx to identify and challenge distorted thoughts, increase healthy coping skills, and prevent decompensation. Narrative Note: []
--- NOTE | 2019-02-13 11:30 | BH.SGPN.GN ---
Behaviors/Verbalizations/Mental Status: []Client alert and oriented, neatly dressed and groomed. Eye contact good. Motor activity appropriate. Speech within normal limits. Affect flat, mood depressed. Thoughts linear, logical, no signs of hallucinations or delusions. Client Response/Progress/Benefit: []Client receptive of session, actively listening, taking notes, and contributing occasionally. Willing to complete worksheet activity. Participated as the group further processed the activity and connected with the importance of self-care in maintaining mental health and promoting balance. Client completed self-assessment activity on the different areas of self-care and was able to identify current practices he uses and identify areas he can improve upon. Client reported he can improve his spiritual self-care. Client set a goal to improve in the area of spiritual self-care. Client?s goal is to read more and to go to [facility]. Client shared this would benefit client because client loves to read, and he finds it peaceful. Client appeared to benefit from increasing awareness of how he can improve his self-care balance. Progress noted as client continues to remain sober from marijuana and alcohol. However, client continues to struggle with managing his depressive symptoms. Will continue IOP tx to promote sobriety, increase healthy coping skills, and prevent decompensation of depression and anxiety. Narrative Note: []
--- NOTE | 2019-02-16 09:05 | BH.SGPN.GN ---
Behaviors/Verbalizations/Mental Status: []Client alert and oriented, disheveled in appearance, hygiene tended to. Eye contact fair. Motor activity appropriate. Speech within normal limits. Affect flat, mood depressed. Thoughts linear, logical, no signs of hallucinations or delusions. Reviewed client?s symptom tracker, indicated a score of 3/5, with 5 being severe, for suicidal ideation and a 0/5, with 5 being severe, for suicidal intention. Reported suicidal risk for today is lower than pt's baseline. Notified individual IOP therapist. Client Response/Progress/Benefit: []Pt was an engaged participant in group discussion, openly processing feelings with the group. Emotion for today is withdrawn. Pt initially struggled with identifying mental health positives. Pt stated he is struggling because everyday seems like the same old thing and he is constantly feeling numb. Pt eventually identified mental health positive is being sober for 22 days, which he stated is in the longest he has been sober since he was 15 years old. Pt seemed to benefit from brief review of neurobiology of addiction in regards to difficulty feeling pleasure when in early recovery. Pt stated additional mental health positive as coming to IOP today. Pt identified current stressor is feeling bored all the time and have limited sober support. Seemed to benefit from peers providing feedback and support. Progress noted with pt maintaining sobriety. Continued IOP tx recommended to improve healthy coping skills, identify and challenge distorted thoughts, and prevent decompensation. Narrative Note: []
--- NOTE | 2019-02-16 10:20 | BH.SGPN.GN ---
Behaviors/Verbalizations/Mental Status: []Client alert and oriented, casually dressed and groomed. Eye contact good. Motor activity appropriate. Speech within normal limits. Affect flat, mood depressed. Thoughts linear, logical, no signs of hallucinations or delusions. Client Response/Progress/Benefit: []Client responded well to session, attentive and taking notes throughout session. Group identified the benefits to setting boundaries as well as the consequences of not setting healthy boundaries. Participated in the discussion of benefits which included; increased confidence, self-love, protection, clearer understanding of one?s values, increased self-awareness, and gaining trust and respect. Client shared setting intellectual and material boundaries is important to him. Group identified the barriers that keep one from setting boundaries which included fear of hurting others and habit. Client engaged during discussion of the different types of boundaries and able to identify the benefits of each. Client able to recognize his own mental health suffers when he does not set boundaries with himself and others. Client seemed to benefit from increased awareness of how poor boundaries can negatively impact mental health. Will continue IOP tx as client continues to struggle with managing his depressive symptoms and negative thinking. Narrative Note: []
--- NOTE | 2019-02-16 11:19 | BH.SGPN.GN ---
Behaviors/Verbalizations/Mental Status: [Client alert and oriented, casual dress, hygiene appropriate. Eye contact fair to good. Motor activity appropriate. Speech within normal limits. Affect congruent, mood depressed. Thoughts linear, logical, no signs of hallucinations or delusions.] Client Response/Progress/Benefit: [Pt responded well to session, mostly active participant and willing to provide some insight to group. Pt did well to engage in the boundary self-assessment activity and worked with group to further process. Pt discussed that he has been able to increase awareness of how his boundaries impact mental health and relationships with others by identifying how issues in trusting others has prevented him from reaching out for support with his mental health. Noted that he has been unable to find new supports as a result. Appeared to benefit from group discussion on strategies for further improving personal boundaries. Identified wanting to improve his ability to enhance emotional boundaries by ?doing the uncomfortable? and challenging himself to reach out to others regarding his mental health. Progress noted in pt ability to identify impact of current boundaries on mental health progress and relationships. Pt to continue IOP tx to maintain gains made, prevent decompensation, improve depression management, and continue to promote healthy change behaviors.] Narrative Note: []
--- NOTE | 2019-02-16 15:16 | BH.MDN ---
Multi-Disciplinary Note - Note 45-min Individual Time Started:: 12:20 Date: 02/16/19 Purpose of session/treatment goals addressed:: The purpose of this session was to address current symptoms, stressors, and negative thoughts. Another goal was to set small goals and challenge barriers keeping client stuck. Eye Contact:: Good Motor Activity:: Slowed Appearance:: Disheveled Speech:: Soft Mood:: Dysthymic Affect:: Flat Thoughts:: Linear, Logical, No evidence of hallucinations/delusions noted Staff Interventions:: Therapist used active listening and open-ended questions to explore client's current stressors, symptoms, and negative thoughts. Therapist provided emotional support and normalized client's recent struggles. Therapist helped client break down barriers keeping client from using coping skills and set SMART goals. Therapist provided psychoeducation on depressive maintenance cycles and addiction. Therapist provided psychoeducation on cognitive distortions and practiced cognitive restructuring with client. Therapist gave client homework to work on his behavioral activation goals and to reach out to his mother and brother. Client Response:: Client responded well to session, open to meeting with therapist. Client shared to be honest I don't think this is working as client is reporting a regression of symptoms. Client stated he has been feeling apathetic and he has not had any motivation to do things. Client admits to not using the coping skills from IOP. Client shared it's like I know them while I'm here, but as soon as I leave, I forget. Client and therapist discussed the benefits of practicing coping skills when client is in a more neutral emotional state so that it becomes more habitual when client is in distress. Client willing to set some small goals to work on for the next two days. Client's goal is to review his IOP notes for 10 minutes before bed tonight and to do 100 pushups by Saturday. Client and therapist discussed how client's perfectionism, all or nothing thinking, and addiction brain are impacting his current expectations for progress. Client receptive to challenging his thoughts and expectations. Client stated he has been falling in to depressive maintenance cycles because of his apathy. Client reported my stubborness and self-pity are keeping client stuck right now. Client and therapsit reviewed ideas on how to help client hold himself accountable. Client plans to reach out to his mother so she can remind client to follow through with his goals. Risks/Concerns:: Client reports passive thoughts of suicide that have been occuring for the last week. Client reports these thoughts are controllable and nothing to worry about. Client denies any active suicidal ideations, plan, or intent as of 02/16/19. Client denies access to weapons and reports ability to maintain safety. Future oriented throughout session. Progress Toward Goals/Plan:: Client reports a recent regression in depressive symptoms and currently reports feelings of apathy. Client shared he is coming down from the ?high? of quitting marijuana and drinking and he reports he has not been using coping skills. Client recognizes that he is having unrealistic expectations for his progress which is making him feel hopeless. Client endorses a depressed mood with irritability, rumination, low self-esteem, perfectionistic expectations, anhedonia, low motivation, and negative thinking. Client will continue IOP tx to prevent decompensation, increase generalization of healthy coping skills, and reduce negative thinking that reinforces depression. Time Stopped:: 13:05
--- NOTE | 2019-02-18 09:05 | BH.SGPN.GN ---
Behaviors/Verbalizations/Mental Status: [Eye contact is fair to good. Motor activity is appropriate. Appearance is casual, grooming fair. Speech is Appropriate rate and tone. Mood is depressed, agitated. Affect is congruent. Thoughts are linear and logical. No evidence of psychosis. Reviewed daily check in sheet and pt reports SI as 3/5, denies any plan, or intent. Will follow-up with individual therapist to further assess for safety] Client Response/Progress/Benefit: [Pt receptive to session, engaged throughout and open to processing with the group. Pt indicated current emotion as ?blah? and discussed that this is due to going lack of enjoyment and little interest in his daily activities. Indicated trying to challenge depressive thinking patterns but continues to struggle in effectively doing so and often resists reaching out to supports out of fear of being a burden. Responded well and appearing to benefit from supportive feedback provided by group. Pt went on to indicate that his mental health wins include continuing to show up from group despite not wanting to be here or do anything in general. Noted reminding himself of benefits of continued effort. Additional win expressed as remaining sober despite having 1000 excuses to begin drinking again. Progress continues to be impacted by limited application of skills outside tx environment. Pt recommended continued IOP tx to prevent decompensation, and promote ongoing application of healthy coping skills, and reduce depression.] Narrative Note: []
--- NOTE | 2019-02-18 10:25 | BH.SGPN.GN ---
Behaviors/Verbalizations/Mental Status: []Client alert and oriented, disheveled appearance. Eye contact good. Motor activity appropriate. Speech within normal limits. Affect flat, mood dysthymic. Thoughts linear, logical, no signs of hallucinations or delusions. Client Response/Progress/Benefit: []Client was mostly a passive participant AEB client?s quietness, but he did complete the worksheet. Client connected with discussion on different types of anxiety, as well as the difference between ?normal? anxiety and anxiety disorders. Client gained awareness of personal physical symptoms of anxiety which included: upset stomach, sweating, dizziness, feeling tense, shaking, and headaches. Client identified sleeping, drugs and alcohol, isolation, and cancelling plans as safety behaviors he has engaged in that provide short term relief but increase anxiety over time. Client appeared to benefit from gaining insight to safety behaviors and how anxiety manifests itself, as well as harmful impact of safety behaviors on mental health. Client continues to struggle with regulating his anxiety and self-reports limited application of coping skills outside of IOP. Will continue IOP tx to prevent decompensation, improve distress tolerance skills, and increase motivation. Narrative Note: []
--- NOTE | 2019-02-18 11:25 | BH.SGPN.GN ---
Behaviors/Verbalizations/Mental Status: []Client alert and oriented, casual in appearance. Eye contact good. Motor activity appropriate. Speech within normal limits. Affect flat, mood depressed. Thoughts linear, logical, no signs of hallucinations or delusions. Client Response/Progress/Benefit: []Pt a passive participant during discussion, providing input if elicited by therapist. Pt able to connect with the discussion reviewing three categories of skills for managing anxiety which included mind-based, body-based, and self-soothing. Listened to group brainstorming various skills within the different categories. Pt identified willing to try the following relaxation skills to help reduce anxiety: grounding tools and self-talk. Pt seemed to benefit from increased awareness of healthy skills to manage anxious symptoms and identifying skills willing to practice outside treatment environment. Pt progress limited due to pt struggling with applying skills learning in IOP. Recommended to continue IOP level of care to increase utilization of healthy coping skills, identify and challenge distorted thoughts, and prevent decompensation. Narrative Note: []
--- NOTE | 2019-02-18 12:44 | PCM.BH.PN ---
Progress Note Progress Note: History of Present Illness/Interim History: [] Patient is a 28-year-old male who is seen in follow-up for depression and anxiety at [facility] IOP program. I last saw the patient 1 week ago. At that time I gave him a prescription for Effexor XR 37.5 mg but he only took 1 of the pills and said that he had all the side effects and was unable to tolerate it. Per Serafin Godoy our phlebotomy director he spoke with the patient's psychiatrist and she states that the patient has a long history of increased sensitivity to medication. He states that he his mood and anxiety are about the same as they were 1 week ago. He still feels depressed and at times feels anxious. He feels that sometimes the marijuana withdrawal kind of returns and makes him feel anxious. He has had a few panic attacks in the last few days and he thinks he could have some sort of viral illness because he does not feel well physically today. He does not want to take any medication until after he gets the gene site genetic testing to see what he can tolerate. He is still been sober from the marijuana. Denies any suicidal ideation but he still has passive thoughts that he would not care if he . He denies any hallucinations or delusions. Current Psychiatric Medications: [] Gabapentin 300 mg p.o. nightly; Effexor XR 37.5 mg (patient took only 1 tablet and was unable to tolerate it so never took anymore). Mental Status Examination: [] She is a 28-year-old male who appears normal for stated age. He is casually dressed and groomed with good hygiene. He is cooperative during the interview and has no psychomotor agitation or retardation. He has good eye contact and his speech is normal rate and rhythm with no pressure. Mood is depressed. Affect is constricted. Thought process is goal-directed and organized. Thought content: No evidence of homicidal or suicidal ideation but he does have thoughts that he would not care if he did not wake up tomorrow. No evidence of hallucinations or delusions. Judgment: Intact. Impulsivity low. 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 He agrees that if it any time he does not feel safe he will tell us at the IOP or go to the emergency room. The risks, options, possible side effects and complications of his medications were discussed with the patient and he understands and accepts these. He does not want to try any other psychiatric meds until he gets the gene psych testing done. He did agree to try propranolol 10 mg p.o. twice a day to help with the somatic manifestations of his anxiety. He will continue to maintain sobriety from marijuana. Prescription was given for the propranolol
--- NOTE | 2019-02-20 09:03 | BH.SGPN.GN ---
Behaviors/Verbalizations/Mental Status: []Client alert and oriented, neatly dressed and groomed. Eye contact fair. Motor activity appropriate. Speech within normal limits. Affect constricted, mood dysthymic. Thoughts linear, logical, no signs of hallucinations or delusions. Reviewed client?s symptom tracker. Client scores were within client's baseline. 3/5 for thoughts of suicide and 0/5 for risk of suicide. Future oriented and does not present as an immediate threat to self or others. Client Response/Progress/Benefit: []Client responded somewhat well to session, attentive, but mostly quiet. Client reports feeling ?a float? today. Client shared he has been struggling with rumination lately and last night client ruminated that he was ?just distracting myself? instead of using healthy coping skills. The group helped client challenge his ruminations and reminded client that sometimes distractions can be healthy and help one feel connected. Client reported he was social yesterday even though he did not want to be, which is a mental health win. Client shared he felt anxious and was going to avoid going to lunch with his coworkers, but he pushed himself to go anyway. Client stated looking at the consequences of not going to lunch made client decide to go. Appeared to benefit from gently challenging negative thoughts. Progress noted as client did not engage in avoidance behaviors yesterday. Will continue IOP tx to prevent decompensation of depressive symptoms and improve mood stability. Narrative Note: []
--- NOTE | 2019-02-20 11:15 | BH.SGPN.GN ---
Behaviors/Verbalizations/Mental Status: []Client alert and oriented, casual in appearance. Eye contact fair. Motor activity appropriate. Speech within normal limits. Affect constricted, mood depressed. Thoughts linear, logical, no signs of hallucinations or delusions. Client Response/Progress/Benefit: []Client was an active participant in group discussion, contributing to discussion and listened attentively to others. Completed worksheet and willing to share with the group. Client reported believes he is in chapter 3 as client shared he knows what his problems are, but struggles with breaking cycle of using maladaptive coping. Client shared to get to the next chapter he is willing to openly discuss his problems with his therapist and actually apply the skills and strategies he learns. Benefited from group by identifying thoughts and behaviors that have kept him stuck and developing plan to promote progress. Will continue in IOP to increase consistent utilization of healthy coping, challenge negative thoughts, and prevent decompensation. Narrative Note: []
--- NOTE | 2019-02-23 09:05 | BH.SGPN.GN ---
Behaviors/Verbalizations/Mental Status: [] Eye contact is poor. Motor activity is appropriate. Appearance is casual. Speech is Appropriate. Mood is depressed. Affect is flat. Thoughts are linear and logical. No evidence of psychosis. Reviewed daily check in sheet and pt reports 3/3 for suicidal thoughts and 3/3 for intent. Therapist notified. Client Response/Progress/Benefit: [] Pt choose not to shared during the group discussion. Quiet and distracted throughout the group. Appeared agitated at times. When asked if he wanted to check in pt stated not really. He was not forced to share. Daily symptoms tracker notes 3/2 for anxiety and hopelessness, 2/5 for panic, and 4/5 for agitation. Therapist notified and will talk with pt prior to leaving IOP today. No progress noted. Will continue in IOP to maintain safety, improve functioning, and decrease anxiety. Narrative Note: []
--- NOTE | 2019-02-23 10:13 | BH.SGPN.GN ---
Behaviors/Verbalizations/Mental Status: [Client alert and oriented, casually dressed and groomed. Eye contact fair to good. Motor activity appropriate. Speech within normal limits. Affect congruent, mood depressed, irritable. Thoughts linear, logical, no signs of hallucinations or delusions. ] Client Response/Progress/Benefit: [Client was semi-engaged throughout, able to remain mostly attentive during discussion of the quote though at times struggling with becoming distracted by self/others. Listened as group worked together to identify barriers that keep one from choosing a new and healthier path to mental wellness which included; unhealthy habits, fear of failure, fear of the unknown, apathy, procrastination, lack of awareness, and negative thinking. Attentive during psychoeducation on the chapters of life, though providing limited insight to distinguishing factors in each chapter. Nodding at times during session and expressing agreement with others reflections. Benefited from increased awareness and education on barriers to choosing new wellness paths and chapters of life. Progress continues to be limited due to pt variable engagement and inconsistent application of tx materials outside of tx environment. Will continue IOP tx to decrease depression, promote healthy coping, while improving client?s ability to function at baseline. ] Narrative Note: []
--- NOTE | 2019-02-23 10:15 | BH.SGPN.GN ---
Behaviors/Verbalizations/Mental Status: [Client alert and oriented, casually dressed and appropriately groomed. Eye contact fair to good. Motor activity appropriate. Speech within normal limits. Affect constricted, mood depressed, irritable. Thoughts linear, logical, no signs of hallucinations or delusions.] Client Response/Progress/Benefit: [Client a mostly passive active participant, providing some limited input though appearing distracted at times by his phone and own thoughts. Listened as group worked to identify barriers to making changes or taking action in their lives which included: fear of the unknown, fear of failure, comfort zone, denial of need to change, and lack of self-awareness. Group also identified the benefits of taking action which included; increased hope and confidence, improved mental health, no longer feeling ?stuck? or stagnant, and personal growth. Client identified personal areas he would like to take back control of to include: negative self-talk, avoidance, fear of weakness, self-deprecation, fear of being vulnerable, and isolation. Benefited from group through increased awareness of personal areas he wants to improve and benefits to taking action towards mental wellness. Progress limited due to inconsistent engagement and application of coping skills. Pt is recommended continued IOP level of care to improve mood stability, promote application of healthy coping skills, and prevent decompensation.] Narrative Note: []
--- NOTE | 2019-02-23 11:20 | BH.SGPN.GN ---
Behaviors/Verbalizations/Mental Status: []Client alert and oriented, disheveled appearance. Eye contact fair. Motor activity appropriate. Speech within normal limits. Affect flat, mood depressed. Thoughts linear, logical, no signs of hallucinations or delusions. Client Response/Progress/Benefit: []Client was a passive participant AEB client?s silence, but taking notes throughout session. Client attentive and listening to discussion of the different zones of taking action as well as the pros and cons of each. Client agreed with peers that to grow and improve mental health, one must step out of their comfort zone, but not take on too much at once. Client completed worksheet in which he identified a problem area to focus on, a SMART goal to help work on problem area, and identify additional supports needed to be successful. Client identified he wants to reduce his self-deprecation. Client identified a small goal which is to say one positive affirmation every morning for a week. Client stated additional supports needed to be successful with goal which included: setting a reminder and asking his mother to hold client accountable. Appeared to benefit from creating a small goal to help client reduce self-deprecation. Will continue IOP tx as client continues to report a depressed mood and lack of implementation of healthy coping skills. Narrative Note: []
--- NOTE | 2019-02-25 09:05 | BH.SGPN.GN ---
Behaviors/Verbalizations/Mental Status: []Client alert and oriented, disheveled appearance. Eye contact fair. Motor activity slowed. Speech within normal limits. Affect flat, mood depressed. Thoughts linear, logical, no signs of hallucinations or delusions. Reviewed client?s symptom tracker, and client's scores were within client's baseline. No risk for suicidal ideation, plan, or intent as of 02/25/19. Client Response/Progress/Benefit: []Client responded well to session, attentive, but quiet. Client reports feeling ?anxious? today. Client stated he feels stressed about work and missing hours do to coming to IOP. Client reported his boss had originally told client he would get paid for the hours he is missing, but client has not been. The group provided positive support to client and as well as emotional support. Client struggled to identify a mental health win at first, but then he acknowledged that today is one month of sobriety. Client received words of encouragement from the group and praise from therapist. Client appeared to benefit from connecting with peers and acknowledging the hard work it took to maintain sobriety for a month. Progress noted in client?s ability to maintain sobriety, but he continues to report daily depressive symptoms and isolation. Will continue IOP tx prevent decompensation and to reduce negative thinking that reinforces depression. Narrative Note: []
--- NOTE | 2019-02-25 14:05 | BH.MDN_ITS ---
Multi-Disciplinary Note - Note 60-min Individual Time Started:: 11:15 Date: 02/25/19 Purpose of session/treatment goals addressed:: The purpose of this session was to address current symptoms, stressors, and negative thoughts about self. Another goal was to challenge barriers keeping client stuck by using a decisional balance exercise. Other topics included self-image. Eye Contact:: Fair Motor Activity:: Slowed Appearance:: Disheveled Speech:: Soft Mood:: Anxious, Dysthymic Affect:: Flat Thoughts:: Linear, Logical, No evidence of hallucinations/delusions noted Staff Interventions:: Therapist used active listening and open-ended questions to explore client's current stressors, symptoms, and negative thoughts. Therapist used a decisional balance worksheet to help client process his conflicting thoughts about IOP. Therapist helped client break down barriers keeping client from using coping skills and reducing his symptoms. Therapist used active listening and provided client a safe, non-judgmental environment as client disclosed personal information. Therapist provided psychoeducation on self-esteem and strategies to reduce shame. Therapist gave client homework to identify five characteristics that client likes about himself that do not have to do with appearance. Client Response:: Client responded well to session, open to meeting with therapist. Client entered session with ambivalence about continuing the IOP program. Client stated I feel like I'm not getting anything out of it because of my attitude. Client shared he has not been applying coping skills outside of group and he has been viewing group as annoying rather than helpful. Able to see how his perspective is impacting his receptiveness to change. Client willing to complete a decisional balance worksheet with therapist. While filling out the worksheet client opened up about other barriers keeping client stuck. Client shared with therapist about something that happened to client last year that brought on self-hate, low self-esteem, and negative thoughts about client's future. Client's view of himself and his body is negative and distorted. Client shared because he views himself in such a negative light, he believes no one will love him because of it. Able to connect that this is why he has not allowed any relationships become intimate. Client recognizes that he has had unhealthy body image since he was in High School. Receptive to support and gentle challenging from therapist. Willing to identify positives about himself that do not have to do with his appearance. Risks/Concerns:: Client continues to report passive suicidal thoughts associated with negative thoughts about his body. Client reports these thoughts are controllable and nothing to worry about. Client denies any active suicidal ideations, plan, or intent as of 02/25/19. Client denies access to weapons and reports ability to maintain safety. Future oriented throughout session. Progress Toward Goals/Plan:: Client continues to report limited progress and ongoing depressive symptoms. Client admits to not applying coping skills or working on his goals outside of IOP. Client did show strides towards progress today by disclosing to this therapist about some negative thoughts and self- image issues client has been having. Client stated he has only opened up to a few people about this due to shame. Client endorses a depressed mood with irritability, rumination, low self-esteem, negative self-talk, anhedonia, low motivation, and negative thinking. Client will continue IOP tx to prevent decompensation, increase generalization of healthy coping skills, and reduce negative self-talk that reinforces depression and low self-esteem Time Stopped:: 12:11
--- NOTE | 2019-02-27 09:00 | BH.SGPN.GN ---
Behaviors/Verbalizations/Mental Status: [] Eye contact is good. Motor activity is appropriate. Appearance is casual. Speech is Appropriate. Mood is anxious. Affect is congruent. Thoughts are linear and logical. No evidence of psychosis. Reviewed daily check in sheet and reports 2/5 for suicidal ideations and 0/5 for intent. Client Response/Progress/Benefit: [] Pt spoke when prompted. Emotion for today is anxious but positive. Notes that he has been more active in the past few days. Mentions that he is focused and is accomplishing tasks which are stressful. Continues to report anxious, low energy, and depression. Notes that it is challenging to get to IOP tin the AM. Very short check-in which is typical for pt however more engaged today than last IOP day. Daily symptoms tracker notes 4/5 for anxiety and agitation. Notes 3/5 for hopelessness. Progress noted per pt report. Will continue in IOP to maintain safety, stabilize mood, and increase healthy coping. Narrative Note: []
--- NOTE | 2019-02-27 10:10 | BH.SGPN.GN ---
Behaviors/Verbalizations/Mental Status: []Client alert and oriented, casual dress and good hygiene. Eye contact fair. Motor activity appropriate. Speech within normal limits. Affect constricted, mood anxious. Thoughts linear, logical, no signs of hallucinations or delusions. Client Response/Progress/Benefit: [] Client was a passive participant AEB limited contributions, but took notes throughout session. Attentive during psychoeducation. Worked with the group to identify benefits to making changes in our lives which included: increasing resilience, setting and accomplishing goals, and seeing setbacks as a learning tool. Group then identified barriers to change or what keeps us from making changes which included: uncomfortable emotions, low motivation, lack of support, closed mindedness, high expectations, and stubbornness. Client participated along with group in activity where they identified and discussed the emotions related to change. Client was attentive during psychoeducation on the change process. Benefited from increased awareness and understating of emotions, benefits, and barriers related to change. Will continue IOP tx to prevent decompensation, increase consistent application of skills and challenge distorted thoughts. Narrative Note: []
--- NOTE | 2019-02-27 11:11 | BH.SGPN.GN ---
Behaviors/Verbalizations/Mental Status: []Client alert and oriented, neatly dressed and groomed. Eye contact good. Motor activity appropriate. Speech within normal limits. Affect constricted, mood dysthymic. Thoughts linear, logical, no signs of hallucinations or delusions. Client Response/Progress/Benefit: []Client was an active participant AEB client attentively listening during discussion and engaging in group activity. Client participated in the activity and processed emotions and barriers associated with making change. Client appeared to connect with discussion on weighing the pros and cons associated with change and benefited from learning to do so through use of decisional balance sheet. Identified he is currently in the preparation/planning stage of change as client reports making small steps towards changing his thinking, but he still struggles with consistency. Client able to identify the pros of becoming more confident which included; building more relationships, feeling more motivation, and better mental health. Progress noted in client?s reduced intensity of suicidal ideations. Recommended continued IOP tx to prevent decompensation, increase consistent application of coping skills, and improve mood stability. Narrative Note: []
--- NOTE | 2019-03-02 09:02 | BH.SGPN.GN ---
Behaviors/Verbalizations/Mental Status: [Eye contact is fair to good. Motor activity is appropriate. Appearance is casual, grooming fair to good. Speech is Appropriate rate and tone. Mood is irritable, dysthymic. Affect is congruent. Thoughts are linear and logical. No evidence of psychosis. Reviewed daily check in sheet and pt report SI as a 3/5, denies any plan, or intent as of this date. Pt baseline is typically at this intensity. Willing to meet with individual therapist to further assess for risk.] Client Response/Progress/Benefit: [Pt receptive of session, mostly engaged throughout and open to processing with the group. Pt indicated current emotion as ?agitated? and discussed that this is due to continuing to feel stressed and depressed about the holiday season. Pt discussed that the holidays are always a stressor and have previously been a time in which he has used substances to cope. Pt displayed insight that challenging himself to identify small positives would be helpful and remember that he gets to spend time with his cousin and brother whom are positive supports for him. Pt was receptive of feedback from group and noted he would be able to spend time with his dog who is a positive aspect of his day. Pt identified mental health wins as ?making it here today despite not being sure if I would? and spending time with his brother to decrease agitation of holiday shopping. Progress continues to be variable given ongoing difficulties in treatment material application. Pt recommended continued IOP tx to prevent decompensation, and promote application of healthy coping skills, and improve mood stability.] Narrative Note: []
--- NOTE | 2019-03-02 10:12 | BH.SGPN.GN ---
Behaviors/Verbalizations/Mental Status: []Client alert and oriented, disheveled appearance. Eye contact good. Motor activity appropriate. Speech within normal limits. Affect constricted, mood dysthymic. Thoughts linear, logical, no signs of hallucinations or delusions. Client Response/Progress/Benefit: []Client receptive to session, quiet, but participating when prompted. Listened as the group brainstormed the positive and negative aspects of stress on physical and mental health. Client participated in identifying current stressors impacting mental health. Client?s current stressors included; holidays, his dog, and mental health symptoms. Client noted that his most significant stressor currently is dealing holiday stress. Client reports belief that his stress jar is currently full. Client stated when his stress is too high, ?it usually results in anger? and then client will feel guilty and shut down. Appeared to benefit from gaining awareness of own current stressors and learning about the impact stress has on overall wellbeing. Progress variable as client often denies applying coping skills outside of IOP. Recommend continued IOP tx to prevent further decompensation and to increase use of healthy coping skills. Narrative Note: []
--- NOTE | 2019-03-02 13:11 | BH.MTP_ITS ---
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 However, client often reports he does not want to come to group and self-reports having low follow through with his application of healthy coping skills outside of group. Client is attentive during group sessions, but he is often quiet unless prompted. In individual sessions, client is receptive to meeting with this therapist and processing stressors. However, client struggles at times to see consistent progress due to self-reported variable application of coping skills and following through with homework. Client also struggles with challenging his negative self-talk. At review, client recognizes that he has increased self- awareness of coping skills and warning signs. However, he continues to report reluctance to challenge his behaviors that reinforce depression and anxiety. Overall, client?s mental health symptoms decreased since admission by 35%. Client?s DSM-5 symptoms for depression decreased from admission to review going from 8/8 at admission to 6/8 at discharge. Client?s suicidal ideations decreased from 3/4 at admission to 2/4 at review. Additionally, client?s anxiety scores decreased since admission, going from 11/12 to 7/12. Client continues to be sober from marijuana and alcohol for over a month. Client is also looking into getting genetic testing done as client has a history of adverse reactions to medications. Status of Current Problems and Symptoms: Client continues to struggle with challenging negative thoughts, self-hate, and applying coping skills outside of group. Client continues to endorse a depressed mood with irritability, rumination, and some isolative behaviors. Client continues to endorse passive thoughts of most days, but he continues to deny any active suicidal ideations, plan or intent. Client reports increased stress and irritability currently due to the holidays. Client is working to increase his consistency in applying healthy coping skills and getting back to being more active. Problem #1 Problem Name:: Reduce overall frequency, intensity, and duration of anxiety and panic. Status of Goals:: Objective 1-complete, but ongoing work recommended. Client continues to be sober from marijuana and alcohol. Additionally, client?s DSM-5 scores for anxiety have decreased since admission. Client can identify healthy coping skills to manage anxiety, but he reports inconsistent application of these coping skills. Objective 2- partially complete. Client can identify distortions and negative thoughts patterns that reinforce anxiety. However, client struggles to consistently challenge and replace these negative thoughts with more realistic messages. Team Recommendations:: Client encouraged to continue working on this treatment goal as he contines to experience ruminations and some avoidance behaviors. Client and therapist have been working on challenging anxious thoughts. Client did not respond well to medication prescribed by IOP psychiatrist and he is not currently taking any medications. Client encouraged to establish outpatient psychiatry post IOP discharge. Problem #2 Problem Name:: Pt. will reduce depressive symptoms and passive thoughts of . Status of Goals:: Objective 1-complete, but ongoing work recommended. Client?s DSM-5 scores for depression have decreased since admission and he can identify healthy coping skills to better manage his symptoms. Client self-reports inconsistent application of these healthy coping skills and continues to struggle with isolative behaviors. Objective 2- partially complete. Client can identify negative self-talk statements that reinforce depression and low self- esteem. However, client admits to not practicing thought challenging and positive self-talk. Team Recommendations:: Client encouraged to continue working on this treatment goal to reinforce healthy coping skills and continue to combat negative thoughts that reinforce depression. Client and therapist have discussed the barriers keeping client from utilizing coping skills. Client and therapist currently working on setting small goals to promote behavioral activation and increase socialization. Client encouraged to establish outpatient counseling for continuity of care.
--- NOTE | 2019-03-02 14:34 | BH.MDN ---
Multi-Disciplinary Note - Note 45-min Individual Time Started:: 11:26 Date: 03/02/19 Purpose of session/treatment goals addressed:: The purpose of this session was to address current symptoms, stressors, and negative thoughts about self. Another goal was to set goals to reduce isolation and improve mood. Other topics included treatment plan review. Eye Contact:: Fair Motor Activity:: Appropriate Appearance:: Disheveled Mood:: Irritable, Dysthymic Affect:: Flat Thoughts:: Linear, Logical, No evidence of hallucinations/delusions noted Staff Interventions:: Therapist used active listening and open-ended questions to explore client's current stressors, symptoms, and negative thoughts. Therapist helped client combat distortions and identify barriers to reaching out to supports. Therapist evaluated client?s progress and discussed ways client can increase progress before discharge. Therapist gave client homework to reach out to one friend this week and to do physical activity at home. Client Response:: Client responded well to session, open to meeting with therapist. Client stated he did not complete homework from the previous session. Client shared he feels anxious and more agitated today because I wanted until the last minute to shop for [place]. Client acknowledges that the holidays bring on more stress and irritability for client due to increased socialization and seeing friends and family who have what I don't have. Client and therapist discussed ways client can cope over the holidays. Client shared he looks forward to seeing a cousin that he does not get to see often. Client stated he could benefit from doing more social and enjoyable things. 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 Client reported he has not reached out to friends about client's mental health because client is afraid of being vulnerable and judged. Receptive to challenging the negative thoughts that promote isolation. Client willing to reach out to his close friend and open up more about his mental health. Client also wants to get back to being physically active. Client set a goal to do 100 pushups over the next two days. Client also wants to get a gym membership again. Client recognizes that his low motivation to follow through is an ongoing barrier to client changing his behaviors. Client shared telling his mom about his goals will likely increase client's motivation to follow through. Risks/Concerns:: Client continues to report passive suicidal thoughts, but shared I've never act on them. Client denies any active suicidal ideations plan as of 03/02/19. Client reports ability to maintain safety. Future oriented throughout session plans to spend time with family for [place]. Progress Toward Goals/Plan:: Client completed the DSM-5 for his review and client?s symptoms for anxiety and depression decreased since admission. However, client continues to report ongoing depressive symptoms most days and irritability. Client admits to not applying coping skills or working on his goals outside of IOP. Client can identify supports and coping skills that would help client improve his mental health, ?but it?s a matter of doing it.? Client endorses a depressed mood with irritability, rumination, low self-esteem, negative self-talk, low motivation, and negative thinking. Client will continue IOP tx to promote use of healthy coping skills, reduce isolation, and increase mood stability. Time Stopped:: 12:14
--- NOTE | 2019-03-06 09:00 | BH.SGPN.GN ---
Behaviors/Verbalizations/Mental Status: []Client alert and oriented, neatly dressed and groomed. Eye contact good. Motor activity appropriate. Speech within normal limits. Affect flat, mood dysthymic . Thoughts linear, logical, no signs of hallucinations or delusions. Reviewed client?s symptom tracker, no risk for suicidal ideation, plan, or intent as of 03/06/19 Client's symptom tracker scores were below client's baseline. Client Response/Progress/Benefit: []Client responded well to session, quiet, but participating when prompted. Client reports feeling ?tired and kind of out of it? today. Client stated he has been dreading going back to work as client is beginning to realize that it is not a healthy environment for his mental health. Client gets some time off for the holidays which client plans to spend time thinking about what he wants to do. Client?s mental health wins today included making it through [place] without getting overwhelmed and doing some pushups at home which was part of his goal for the week. Client receptive to supportive statements and encouragement from peers. Client continues to struggle with seeing consistent mood stability. Client has self-reported limited application of coping skills outside of IOP which may be contributing to his variable progress. Will continue IOP level of care to promote use of healthy coping skills and challenge distortions. Narrative Note: []
--- NOTE | 2019-03-06 10:15 | BH.SGPN.GN ---
Behaviors/Verbalizations/Mental Status: [Client alert and oriented, casually dressed and groomed. Eye contact fair to good. Motor activity appropriate. Speech within normal limits. Affect constricted, mood agitated, depressed. Thoughts linear, logical, no signs of hallucinations or delusions. ] Client Response/Progress/Benefit: [Client was a mostly passive participant AEB providing limited input throughout session and appearing agitated; however, did well to take notes and was listening attentively to peers. Pt maintaining good eye contact during discussion on anger. The group discussed the quote and how the emotion anger is not good or bad, but one can respond to anger in healthy or harmful ways. Client listened as the group worked to define anger and its causes, as well as the internal and external impacts of anger. Group identified potential consequences of unhealthy management of anger to include: losing relationships, guilt, internalizing emotions, lashing out, and worsening mental health symptoms. Client identified underlying factors of his anger which included: feeling overwhelmed, stressed, embarrassment, not meeting own expectations, failure, PTSD, loss, boredom, fighting unwanted emotions, feeling attacked, and needs not being met. Client indicated that lashing out, fighting, get ?snappy?, and ignoring people are common responses he has when feeling angry. Benefited from group by increasing awareness of the negative impacts of unmanaged anger and underlying factors that contribute to her personal anger. Progress limited given pt minimal engagement in session and reports of continued anger and depression. Will continue IOP tx to reduce depression and agitation, promote healthy change behaviors, and improve mood stability.] Narrative Note: []
--- NOTE | 2019-03-06 11:15 | BH.SGPN.GN ---
Behaviors/Verbalizations/Mental Status: []Client alert and oriented, casual dress, hygiene tended to. Eye contact fair. Motor activity appropriate. Speech within normal limits. Affect constricted, mood dysthymic Thoughts linear, logical, no signs of hallucinations or delusions. Client Response/Progress/Benefit: []Pt passive participant throughout AEB limited contributions to discussion, however did engage in activity and appeared to listen attentively to others. Pt did well to challenge herself to complete the group activity and incorporate anger management/emotion regulation skills in order to do so. Pt worked with the group to identify the various barriers faced in the activity as well as skills used to successfully complete the task at hand without becoming dysregulated or uncontrollably angry. Pt appeared to connect with others that he has used alcohol/drugs as a way to manage his anger, which resulted in increased problems. Group brainstormed with group healthy coping skills to help manage anger which included: listening to music, changing environment, breathing, coloring, walking, exercise, and petting an animal. He appeared to benefit from brainstorming with the group potential strategies to manage anger in healthy ways. Pt identified plans to begin using deep breathing as a means of coping with anger. Recommended continued IOP to reduce mental health sx, increase consistent application of healthy coping, and prevent decompensation. Narrative Note: []
--- NOTE | 2019-03-09 14:01 | BH.DS_ITS ---
Discharge Summary - Demographics Date of Admission:: 01/30/19 Discharge Date: 03/09/19 Presenting Problems at Admission:: Client is a 28-year-old male with a history of MDD and STORMY. Client was referred to [facility] following a crisis assessment on 01/28/19. Client had a crisis assessment due to overwhelming anxiety when client presented to the ER. Client reported he had been decompensating for the two weeks. At admission, client endorsed increased sleep, low energy, low mo tivation, hopelessness, isolative and avoidant behaviors, and fleeting suicidal ideations with methods. Client also endorsed panic attacks, restlessness, uncontrollable worries, and intrusive thoughts. Client had been a heavy daily marijuana user until a week prior to admission. Client reports he quit marijuana and alcohol cold turkey and he believed he was going through marijuana withdrawal. Client's symptoms were impacting his ability to function at his baseline as well as his social, occupational, and familial functioning. 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 Client also reports reduced passive suicidal ideations and belief that he has received the maximum benefit from IOP. Client no longer meets criteria for [facility] level of care. - Treatment Progress During Treatment & Response: Client responded mostly well to treatment as shown by his overall consistent attendance. However, client self-reported having low follow through with his application of healthy coping skills outside of group. Client was attentive during group sessions as shown by taking notes, but client was often quiet during group discussions. In individual sessions, client was receptive to meeting with this therapist and processing stressors. However, client struggled at times to see consistent progress due to self- reported variable application of coping skills and following through with homework. Client also struggled with ongoing negative self-talk that reinforced his depression and unrealistic expectations. Client self-identified his progress as increased self-awareness of negative thinking, reduced panic, and increased awareness of healthy coping skills. Overall, client?s mental health symptoms decreased since admission by 40%. Client?s DSM-5 symptoms for depression decreased from admission to discharge going from 8/8 at admission to 6/8 at discharge. Client?s suicidal ideations decreased from 3/4 at admission to 2/4 at discharge. Additionally, client?s anxiety scores decreased since admission, going from 11/12 to 8. Issues Still to be Addressed:: Client has made progress towards his treatment goals, but he can continue to benefit from ongoing therapy to reinforce healthy coping skills, combat negative core beliefs, and improve consistency. Client acknowledges he has a history of self-reported lack of follow through, and there is a concern post IOP discharge that the lack of structure may cause client to revert back to old habits. Client can benefit from increasing positive supports, getting back to being active, and increasing consistent application of healthy coping skills. Client continues to struggle with low self-esteem and self- confidence associated with his body image. Client can benefit from ongoing thought challenging to reframe negative self-talk and improve self-confidence. Discharge Recommendations/Instructions:: Client recommended to follow up with his outpatient therapist, Maria Elena, at [facility] for continuity of care and ongoing work to manage mental health symptoms. Client declined to call during session to schedule an appointment with Maria Elena and shared he would call at a later time. Client also recommended to follow at [facility] for psychiatry. Client?s first appointment is 05/01/19. Client was also provided with information for Dr. Kaye to help client establish a PCP. Discharge Handout: Complete Discharge Handout with client on aftercare options and continuity of care.
--- NOTE | 2019-03-09 14:01 | BH.MDN ---
Multi-Disciplinary Note - Note 30-min Individual Time Started:: 09:40 Date: 03/09/19 Purpose of session/treatment goals addressed:: The purpose of this session was to review client's progress and review strategies that will promote mood stability and gains made in [facility]. Another goal was to set up outpatient services. Eye Contact:: Good Motor Activity:: Appropriate Appearance:: Neat Speech:: Soft Mood:: Irritable Affect:: Constricted Thoughts:: Linear, Logical, No evidence of hallucinations/delusions noted Staff Interventions:: Therapist used open-ended questions to explore client's thoughts on personal progress. Therapist reviewed supports, warning signs, and coping skills with client to promote gains and prevent setbacks. Therapist discussed aftercare plan with client and used strengths-perspective to empower client and promote use of healthy coping skills. Therapist discussed the benefits of ongoing maintenance and use of daily coping skills. Therapist helped client schedule an outpatient psychiatry appointment and gave client resources to establish a PCP. Client Response:: Client responded well to session, open to meeting with therapist. Client stated he feels ready to discharge from [facility] reporting he has received the maximum benefit from the program. Client completed the DSM-5 self-assessment and his scores decreased by 40% since admission. Client acknowledges that at times his perspective and attitude towards IOP may have prevented client from making further progress. Client shared he is having less intrusive thoughts and less panic attacks. Client continues to struggle with his self-esteem and negative self-talk, but he appears willing to work on this during outpatient counseling. Client receptive to calling [facility] during session to setup aftercare. Client would like to call and setup a PCP on his own rather than in session. Client and therapist discussed coping skills to promote stability. Coping skills included; challenging negative thoughts, opposite action, reaching out to supports, being active, walking his dog, and setting small goals. Risks/Concerns:: Client denies any active suicidal ideations, plan, or intent as of 03/09/19. Continue passive thoughts of suicde, but of decreased frequency since admission. Progress Toward Goals/Plan:: Client to discharge from [facility] today as he reports receiving maximum benefit from the program. Client has demonstrated progress towards his treatment goals as shown by his decreased DSM-5 scores for depression and anxiety. Client self-reports progress in reduced panic symptoms. Client acknowledges that to promote mood stability moving forward it is important for him to apply coping skills consistently. Client to follow up with his outpatient therapist, Maria Elena, at [facility] for individual counseling and [facility] for psychiatry. Client was also provided with resources to help client establish a PCP. Client declined to call and setup a PCP during session. Time Stopped:: 10:05
== END 2019-03-09 13:59 | disposition home or self-care (01) ==
LOC: BHIOP 09:00
PROVIDERS: Referring Provider Psychiatry & Neurology Psychiatry; Visit Provider Psychiatry & Neurology Psychiatry
DX: F41.1 Generalized anxiety disorder (principal); F33.2 Major depressive disorder, recurrent severe without psychotic features; F12.23 Cannabis dependence with withdrawal; Z72.89 Other problems related to lifestyle; F12.90 Cannabis use, unspecified, uncomplicated
CPT/HCPCS: H0035; 90832; 90834; 90837; 90853

== ENCOUNTER → 2022-04-24 | Outpatient (CLI) | payer BC, SELFPAY ==
[2022-04-24 16:54] LABS: Absolute Lymphocyte Count 2.34 X10^3/uL (0.83-4.51); Absolute Neutrophil Count 3.6 X10^3/uL (2.0-7.7); Basophil# 0.05 X10^3/uL; Basophil% 0.7 % (0-1); Eosinophil# 0.25 X10^3/uL; Eosinophils% 3.7 % (0-5); Hematocrit 45.7 % (40-54); Hemoglobin 15.6 g/dL (13.0-16.5); Lymphocyte # 2.34 X10^3/ul (0.83-4.51); Lymphocyte % 34.4 % (19-41); Mean Corp Hgb Conc 34.1 g/dL (32-36); Mean Corpuscular Hgb 29.8 pg (27.0-32.0); Mean Corpuscular Volume 87.2 fL (80-94); Mean Platelet Vol. 10.8 fl (6.2-12.0); Monocyte# 0.58 X10^3/uL; Monocyte% 8.5 % (0-10); NRBC Flagged by Analyzer 0 % (0-5); Neutrophil # 3.57 X10^3/uL (2.7-7.7); Neutrophil % 52.4 % (47-70); Platelet Count 222 K/mm3 (150-450); RBC Distribution Width CV 11.9 % (11.6-14.6); RBC Distribution Width SD 37.9 fl (35.1-43.9); Red Blood Count 5.24 M/mm3 (4.6-6.2); White Blood Count 6.8 K/mm3 (4.4-11.0)
[2022-04-24 17:56] LABS: ALB/GLOB Ratio 1.2 RATIO (0.9-2.4); AST(SGOT) 23 U/L (15-37); Alanine Aminotransfer ALT/SGPT 37 U/L (16-61); Albumin, Serum 4.2 g/dL (3.2-5.0); Alkaline Phosphatase 55 U/L (45-117); Anion Gap 6 (5-15); BUN 16 mg/dL (7-18); BUN/Creat Ratio 12.6 RATIO (10-20); CRP < 2.90 mg/L (0.0-3.0); Calcium,Total 9.8 mg/dL (8.5-10.1); Chloride 104 mmol/L (98-107); Creatinine, Serum 1.27 mg/dL (0.70-1.30); EST Glomerular Filtration Rate 70 mL/min (>60); Est Glom Filt Rate - Afr Amer 85 mL/min (>60); Globulin 3.5 g/dL (2.2-4.2); Glucose 91 mg/dL (74-106); Potassium 3.7 mmol/L (3.5-5.1); Protein, Total 7.7 g/dL (6.4-8.2); Sodium Level 139 mmol/L (136-145)
[2022-04-24 19:32] LABS: Erythrocyte Sedimentation Rate 1 mm/hr (0-20)
[2022-04-26 16:09] LABS: Endomysial Antibody IgA Negative (Negative)
[2022-04-27 18:47] LABS: Immunoglobulin A 147 mg/dL (90-386); t-Transglutaminase IgA <2 U/mL (0-3)
== END | disposition home or self-care (01) ==
PROVIDERS: Visit Provider Nurse Practitioner Adult Health
DX: R19.8 Other specified symptoms and signs involving the digestive system and abdomen (principal)
CPT/HCPCS: 80053; 82784; 83516; 85025; 85652; 86140; 86255

== ENCOUNTER → 2022-04-25 | Outpatient (CLI) | payer BC, SELFPAY ==
[2022-04-28 22:20] LABS: Calprotectin, Stool 31 ug/g (0-120)
== END | disposition home or self-care (01) ==
LOC: LABSPEC 16:52
PROVIDERS: Visit Provider Nurse Practitioner Adult Health
DX: K58.9 Irritable bowel syndrome, unspecified (principal); R19.8 Other specified symptoms and signs involving the digestive system and abdomen
CPT/HCPCS: 83630; 83993

== ENCOUNTER 2022-09-15 23:22 | Emergency (ER) | payer BC, SELFPAY ==
[2022-09-15 23:23] VITALS: BP 140/94; PULSE 72; RESP 18; TEMP 36.4; O2SAT 99; BMI 25.5
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
[2022-09-16 00:55] VITALS: PULSE 79; RESP 16; O2SAT 98
== END 2022-09-16 00:58 | disposition home or self-care (01) ==
PROVIDERS: Emergency Provider Emergency Medicine; Visit Provider Emergency Medicine
DX: S81.011A Laceration without foreign body, right knee, initial encounter (principal); V43.52XA Car driver injured in collision with other type car in traffic accident, initial encounter; Z87.891 Personal history of nicotine dependence
CPT/HCPCS: 12002; 99283

== ENCOUNTER 2023-03-11 00:38 | Emergency (ER) | payer BC, SELFPAY ==
[2023-03-11 00:38] VITALS: BP 150/99; PULSE 105; RESP 18; TEMP 36.7; O2SAT 99; BMI 26.4
[2023-03-11] MEDS: Ondansetron 4 MG/2 ML Vial IV (01:02)
[2023-03-11] MEDS: Morphine 4 MG/ML Syringe IV (01:04)
--- OUTSIDE RECORDS SUMMARY | 2023-03-11 01:17 | XMS RPT_ITS | CCD ---
Author Name Unknown Address [id number] [place] [address] Organization [facility] Care Team Providers Care Forensic Engineer Name Role Phone Kun Rollins MD Primary Care Provider PHYSICIAN, NOT RECORDED Primary Care Physician U DR. VIOLA Irby DO Attending Unavailable PHYSICIAN, NOT RECORDED Primary Care Unavaila Kun Martínez MD Primary Care Provider Kun Rollins MD Primary Care Provider KUN ROLLINS Primary Care Unavailab SMILEY Sierra Attending Unavailable AMERICO BRADLEY Referring Unavailable KUN ROLLINS Primary Care Unavailab KUN Bowling Primary Care Unavailab KUN Bowling Primary Care Unavailab KUN Bowling Referring Unavailab KUN Bowling Primary Care Unavailab KUN Bowling Primary Care Unavailab SMILEY Sierra Referring Unavailable KUN ROLLINS Primary Care Unavailab FRANCISCA Omalley Attending Unavailable Allergies Allergy Classification Reported Allergen(s) Allergy Type Date of Onset Reaction(s) Facility (11 sources) ARIPiprazole; Translations: [ARIPIPRAZOLE] Drug Allergy 04-01-2019 Other: See Comments [facility] Work Phone: (12 sources) Ciprofloxacin; Translations: [ciprofloxacin] Drug Allergy 06-27-2018 Diarrhea, GI Upset [facility] (11 sources) Citalopram; Translations: [CITALOPRAM HYDROBROMIDE] Drug Allergy 07-07-2018 Diarrhea [facility] (11 sources) FLUoxetine; Translations: [FLUOXETINE] Drug Allergy 07-17-2018 GI Upset [facility] (11 sources) PARoxetine; Translations: [PAROXETINE HCL] Drug Allergy 07-17-2018 GI Upset [facility] Medications Current Medications Medication Drug Class(es) Dates Sig (Normalized) Sig (Original) doxycycline monohydrate 100 mg oral tablet (1 source) Tetracycline-cla ss Drug Start: 08-11-2021 End: 08-18-2021 take 1 tablet by mouth twice daily doxycycline monohydrate 100 mg tablet Indications: Sinobronchitis Take 1 tablet by mouth twice daily for 7 days. 14 tablet 0 08/11/2021 08/18/2021 Active Completed/Discontinued Medications Medication Drug Class(es) Dates Sig (Normalized) Sig (Original) [id number] 200 actuat albuterol 0.09 mg/actuat metered dose inhaler (9 sources) beta2-Adrenergic Agonist Start: 08-11-2021 take 2 puff(s) by inhalation every four hours as needed albuterol HFA (PROAIR HFA) 90 mcg/actuation inhaler Indications: Cough Inhale 2 Puffs as instructed every 4 hours as needed. 18 g 0 08/11/2021 Active Problems Active Problems Problem Classification Problem Date Documented Da te Episodic/Chronic Adjustment disorders (10 sources) Adjustment disorder with mixed anxiety and depressed mood; Translations: [Adjustment disorder with mixed anxiety and depressed mood] Onset: 1 01-27-2015 Chronic Alcohol-related disorders (10 sources) Alcohol abuse; Translations: [Alcohol abuse, uncomplicated] 04-01-2019 Chronic Anxiety disorders (20 sources) Panic disorder without agoraphobia; Translations: [Panic disorder [episodic paroxysmal anxiety]] Onset: 6 04-18-2015 Chronic Asthma (10 sources) Unspecified asthma, uncomplicated; Translations: [Asthma, unspecified type, unspecified] Onset: 5 02-21-2005 Chronic Esophageal disorders (10 sources) Gastroesophageal reflux disease; Translations: [Gastro-esophageal reflux disease without esophagitis] Onset: 5 04-02-2014 Chronic Genitourinary symptoms and ill-defined conditions (2 sources) Dysuria; Translations: [Dysuria] Onset: 2 Episodic Malaise and fatigue (2 sources) Fatigue; Translations: [Other fatigue] Onset: 2 Episodic Mood disorders (11 sources) Depressive disorder; Translations: [Depression] Onset: 1 04-01-2019 Chronic Nausea and vomiting (1 source) Nausea; Translations: [Nausea] Episodic Other gastrointestinal disorders (10 sources) Irritable bowel syndrome; Translations: [Irritable bowel syndrome without diarrhea] Onset: 1 01-24-2011 Chronic Other gastrointestinal disorders (2 sources) Irritable bowel syndrome characterized by constipation; Translations: [Irritable bowel syndrome with constipation] Chronic Other gastrointestinal disorders (1 source) Irritable bowel syndrome with constipation; Translations: [Irritable bowel syndrome with constipation] Onset: 1 Chronic Other gastrointestinal disorders (1 source) Diarrhea; Translations: [Diarrhea, unspecified] Episodic Other lower respiratory disease (1 source) Cough; Translations: [Cough] Episodic Other lower respiratory disease (1 source) H/O: asthma; Translations: [Personal history of other diseases of the respiratory system] Episodic Other male genital disorders (10 sources) Lesion of penis; Translations: [Disorder of penis, unspecified] Onset: 6 03-30-2015 Chronic Other screening for suspected conditions (not mental disorders or infectious disease) (3 sources) Patient encounter status; Translations: [Encounter for screening for lipoid disorders] Onset: 2 Episodic Other upper respiratory infections (1 source) Chronic sinusitis; Translations: [Chronic sinusitis, unspecified] Chronic Personality disorders (1 source) Personality disorder 05-01-2019 Chronic Substance-related disorders (10 sources) History of cocaine abuse; Translations: [Cocaine abuse, in remission] 04-01-2019 Chronic Substance-related disorders (11 sources) Marijuana user; Translations: [Cannabis use, unspecified, uncomplicated] 04-01-2019 Episodic Past or Other Problems Problem Classification Problem Date Documented Da te Episodic/Chronic Nonmalignant breast conditions (10 sources) Gynecomastia; Translations: [Hypertrophy of breast] Onset: 01-19-2013 01-19-2013 Episodic Skin and subcutaneous tissue infections (10 sources) Pilonidal cyst; Translations: [Pilonidal cyst without abscess] Onset: 03-29-2009 03-29-2009 Episodic Viral infection (10 sources) Verruca vulgaris; Translations: [Viral wart, unspecified] Onset: 01-12-2013 01-12-2013 Episodic Results Test Name Value Interpretation Reference Range Facil ity Vital Signs Date Time Vital Sign Value Performing Clinician Facility 12-28-2021 10:25-0400 Body weight 73.94 kg Francisca Burton CHAINSTITCH FELLED SEAM OPERATOR.CLINICAL STATISTICS MANAGER Work Phone: [facility] 12-28-2021 10:25-0400 Diastolic blood pressure 86 mm[Hg] Francisca Vegahof CHAINSTITCH FELLED SEAM OPERATOR.CLINICAL STATISTICS MANAGER Work Phone: [facility] 12-28-2021 10:25-0400 Heart rate 81 /min Francisca Vegahof CHAINSTITCH FELLED SEAM OPERATOR.CLINICAL STATISTICS MANAGER Work Phone: [facility] 12-28-2021 10:25-0400 Respiratory rate 16 /min Francisca Vegahof CHAINSTITCH FELLED SEAM OPERATOR.CLINICAL STATISTICS MANAGER Work Phone: [facility] 12-28-2021 10:25-0400 SaO2% (BldA) [Mass fraction] 95 % Franciscanola Vegahof CHAINSTITCH FELLED SEAM OPERATOR.CLINICAL STATISTICS MANAGER Work Phone: [facility] 12-28-2021 10:25-0400 Systolic blood pressure 110 mm[Hg] Francisca Vegahof CHAINSTITCH FELLED SEAM OPERATOR.CLINICAL STATISTICS MANAGER Work Phone: [facility] 12-09-2021 20:07-0400 Body temperature 98.24 [degF] DR VIOLA VALVERDE DO [facility] 12-09-2021 20:07-0400 Diastolic blood pressure 75 mm[Hg] DR VIOLA VALVERDE DO [facility] 12-09-2021 20:07-0400 Heart rate 102 /min DR VIOLA VALVERDE DO [facility] 12-09-2021 20:07-0400 Mean blood pressure 93 mm[Hg] DR VIOLA VALVERDE DO [facility] 12-09-2021 20:07-0400 Respiratory rate 18 /min DR VIOLA VALVERDE DO [facility] 12-09-2021 20:07-0400 Systolic blood pressure 129 mm[Hg] DR VIOLA VALVERDE DO [facility] 12-06-2021 07:41-0400 Body weight 73.48 kg Smiley Podlogar CHAINSTITCH FELLED SEAM OPERATOR.CLINICAL STATISTICS MANAGER Work Phone: [facility] 12-06-2021 07:41-0400 Diastolic blood pressure 78 mm[Hg] Smiley Podlogar CHAINSTITCH FELLED SEAM OPERATOR.CLINICAL STATISTICS MANAGER Work Phone: [facility] 12-06-2021 07:41-0400 Heart rate 76 /min Smiley Podlogar CHAINSTITCH FELLED SEAM OPERATOR.CLINICAL STATISTICS MANAGER Work Phone: [facility] 12-06-2021 07:41-0400 Respiratory rate 16 /min Smiley Podlogar CHAINSTITCH FELLED SEAM OPERATOR.CLINICAL STATISTICS MANAGER Work Phone: [facility] 12-06-2021 07:41-0400 SaO2% (BldA) [Mass fraction] 98 % Smiley Podlogar CHAINSTITCH FELLED SEAM OPERATOR.CLINICAL STATISTICS MANAGER Work Phone: [facility] 12-06-2021 07:41-0400 Systolic blood pressure 112 mm[Hg] Smiley Podlogar CHAINSTITCH FELLED SEAM OPERATOR.CLINICAL STATISTICS MANAGER Work Phone: [facility] 08-11-2021 11:16-0400 Body temperature 98.4 [degF] Americo Bradley CHAINSTITCH FELLED SEAM OPERATOR.CLINICAL STATISTICS MANAGER Work Phone: [facility] 08-11-2021 11:16-0400 Body weight 73.12 kg Americo Bradley CHAINSTITCH FELLED SEAM OPERATOR.CLINICAL STATISTICS MANAGER Work Phone: [facility] 08-11-2021 11:16-0400 Diastolic blood pressure 82 mm[Hg] Americo Bradley CHAINSTITCH FELLED SEAM OPERATOR.CLINICAL STATISTICS MANAGER Work Phone: [facility] 08-11-2021 11:16-0400 Heart rate 79 /min Americo Bradley CHAINSTITCH FELLED SEAM OPERATOR.CLINICAL STATISTICS MANAGER Work Phone: [facility] 08-11-2021 11:16-0400 Respiratory rate 20 /min Americo Bradley APRN.CLINICAL STATISTICS MANAGER Work Phone: [facility] 08-11-2021 11:16-0400 SaO2% (BldA) [Mass fraction] 98 % Americo Bradley APRN.CLINICAL STATISTICS MANAGER Work Phone: [facility] 08-11-2021 11:16-0400 Systolic blood pressure 124 mm[Hg] Americo Bradley APRN.CLINICAL STATISTICS MANAGER Work Phone: [facility] Encounters Encounter Date Encounter Type Care Provider Facility Start: 02-23-2022 Telephone encounter Ollie Rollins MD Work Phone: [facility] Procedures Date Procedure Procedure Detail Performing Clinician Start: 08-11-2021 Radiologic exam ches t 2 views Americo Bradley APRN.CLINICAL STATISTICS MANAGER Work Phone: Plan of Treatment Date Care Activity Detail Author Start: 12-28-2021 End: 02-27-2022 Bacteria identified in Urine by Culture [facility] Work Phone: Immunizations Immunization Date Immunization Notes Care Provider Fa cility 08-25-2015 human papilloma viru s vaccine, quadrivalent Kun Rollins MD Work Phone: [facility] 03-25-2012 influenza virus vaccine, unspecified formulation Kun Rollins MD Work Phone: [facility] 02-23-2011 influenza virus vaccine, unspecified formulation Kun Rollins MD Work Phone: [facility] 12-27-2008 influenza virus vaccine, unspecified formulation Kun Rollnis MD Work Phone: [facility] Work Phone: 01-20-2007 influenza virus vaccine, unspecified formulation Kun Rollins MD Work Phone: [facility] Work Phone: 01-20-2007 Meningococcal, MCV4, unspecified conjugate formulation(groups A, C, Y and W-135) Kun Rollins MD Work Phone: [facility] Work Phone: 02-04-2006 influenza virus vaccine, unspecified formulation Kun Rollins MD Work Phone: [facility] 08-23-2005 tetanus toxoid, reduced diphtheria toxoid, and acellular pertussis vaccine, adsorbed Kun Rollins MD Work Phone: [facility] 01-01-2005 influenza virus vaccine, unspecified formulation Kun Rollins MD Work Phone: [facility] 07-15-2000 hepatitis B vaccine, pediatric or pediatric/adolescent dosage Kun Rollins MD Work Phone: [facility] Work Phone: 07-15-2000 measles, mumps and rubella virus vaccine Kun Rollins MD Work Phone: [facility] Work Phone: 02-07-2000 hepatitis B vaccine, pediatric or pediatric/adolescent dosage Kun Rollins MD Work Phone: [facility] Work Phone: 12-29-1999 hepatitis B vaccine, pediatric or pediatric/adolescent dosage Kun Rollins MD Work Phone: [facility] Work Phone: 06-16-1996 diphtheria, tetanus toxoids and acellular pertussis vaccine Kun Rollins MD Work Phone: [facility] Work Phone: 06-16-1996 trivalent poliovirus vaccine, live, oral Kun Rollins MD Work Phone: [facility] Work Phone: 04-28-1992 diphtheria, tetanus toxoids and pertussis vaccine Kun Rollins MD Work Phone: [facility] Work Phone: 04-28-1992 trivalent poliovirus vaccine, live, oral Kun Rollins MD Work Phone: [facility] Work Phone: 01-28-1992 haemophilus influenz ae type b vaccine, HbOC conjugate Kun Rollins MD Work Phone: [facility] Work Phone: 01-28-1992 measles, mumps and rubella virus vaccine Kun Rollins MD Work Phone: [facility] Work Phone: 05-14-1991 diphtheria, tetanus toxoids and pertussis vaccine Kun Rollins MD Work Phone: [facility] Work Phone: 05-14-1991 haemophilus influenz ae type b vaccine, HbOC conjugate Kun Rollins MD Work Phone: [facility] Work Phone: 02-26-1991 diphtheria, tetanus toxoids and pertussis vaccine Kun Rollins MD Work Phone: [facility] Work Phone: 02-26-1991 haemophilus influenz ae type b vaccine, HbOC conjugate Kun Rollins MD Work Phone: [facility] Work Phone: 02-26-1991 trivalent poliovirus vaccine, live, oral Kun Rollins MD Work Phone: [facility] Work Phone: 1990 diphtheria, tetanus toxoids and pertussis vaccine Kun Rollins MD Work Phone: [facility] Work Phone: 1990 haemophilus influenz ae type b vaccine, HbOC conjugate Kun Rollins MD Work Phone: [facility] Work Phone: 1990 trivalent poliovirus vaccine, live, oral Kun Rollins MD Work Phone: [facility] Work Phone: Payers Date Payer Category Payer Unknown KARUNA JOHNSON PPO [id number] 2019-Present [phone] [address] [place] [address] O [id number] 2019 Unknown KARUNA JOHNSON PPO [id number] 2019-Present [phone] [id number] [place] [address] PPO [id number] 2019 Unknown [id number] 1990 Unknown [id number] Social History Date Type Detail Facility Start: 12-06-2021 Tobacco smoking stat us AKIS Never smoked tobacco [facility] Start: 07-21-2020 End: 12-28-2021 Alcohol intake Ex-drinker (finding) [facility] Start: 05-08-2013 History SDOH Alcohol Comment 2-3x/month, 5-6 beers (lt) [facility] Start: 1990 Sex Assigned At Not on file C [facility] Start: 08-01-2021 End: 12-28-2021 Exposure to SARS-CoV-2 (event) Not sure [facility] Work Phone: Start: 12-06-2021 Tobacco use and exposure Smokeless tobacco non-user [facility] Functional Status Date Assessment Result Facility 12-09-2021 Functional Status ID band on, Call device within reach, Bed in low position, Wheels locked, Upper/Half-Length side-rails up, Phone within reach, personal items within reach, Visitor at bedside, Safety level maintained [facility] Mental Status Date Assessment Result Facility 12-09-2021 Mental Status Oriented x 4 [facility] Clinical Notes 08-09-2021 to 02-23-2022 Telephone Encounter - Carolyne Laureano Ma - 02/23/2022 8:51 AM ESTTelephone Encounter - Carolyne Laureano Ma - 02/23/2022 8:50 AM ESTTelephone Encounter - Thea Johnson RN - 01/25/2022 4:54 PM EST Note Date & Type Note Facility 02-23-2022 Miscellaneous Notes Pt notified of results via [employer]. Carolyne Laureano Ma ----- Message from Kun Rollins MD sent at 02/22/2022 5:12 PM EST ----- Testosterone level is normal. documented in this encounter [facility] 01-25-2022 Miscellaneous Notes Pt called and is notified of providers message. Pt voices understanding and reports he will have to call back to schedule an appointment. Thea Johnson RN Needs OV to reassess hemorrhoids Pt calling about hemorroids. States nothing over the counter that was suggested is working. He is scheduled with Dr Kelley but that is a few months away. Is there a stronger medication or something else he should try? He is willing to be seen in office if that is necessary for an update. documented in this encounter [facility] 01-24-2022 Miscellaneous Notes Office received fax from [facility]. Pt has been scheduled for 04/11/22. Madelin Hackett Ma documented in this encounter [facility] 01-11-2022 Miscellaneous Notes Referral, OV, demo, labs, faxed to Dr. Kelley's office. Will have their office call pt to schedule. Carolyne Laureano Ma Patient would like to be seen by Dr. Kelley at [facility]. Please fax referral to their office. documented in this encounter [facility] 01-03-2022 Miscellaneous Notes Patient notified of results, verbalizes understanding of instructions. Madyson Ni LPN Can you please call the patient and let him know that I reviewed his lab and stool test results. Labs were all relatively normal, however her LDL cholesterol was just mildly elevated. I would recommend working on diet at home, try to eat lean cuts of meat, increase vegetables, and get some form of exercise. Stool testing was negative for any bacteria or parasites. Symptoms he is having is due to his IBS. I would continue to use MiraLAX 1-2 times per day as discussed during office visit for constipation. Stay well-hydrated and increase fiber in the diet. May follow-up with gastroenterology for further evaluation. Please let me know if he has any questions. Thank you. Francisca Burton APRN.CNP documented in this encounter [facility] 12-29-2021 Miscellaneous Notes Pt informed, verbalized understanding Carey Blanco Ma Please call patient and let him know his blood count, hemoglobin, electrolytes, kidney and liver function are normal. Smiley Angulo APRN.CNP documented in this encounter [facility] 12-28-2021 Note HNO ID: [id number] Author: Francisca Burton APRN.CNP Service: ? Author Type: Nurse Practitioner Type: Progress Notes Filed: 12/28/2021 10:54 AM Note Text: This is a 31 year old male who presents today with: Patient presents with: Acute Visit: thinks has intestinal worms HISTORY OF PRESENT ILLNESS: Renee Giles is a 31 year old male. Patient presents with: Acute Visit: thinks has intestinal worms Patient of Dr. Rollins here in the office for concerns of intestinal parasites. Pt states stool looks like there could be worms or mucous , denies noticing if it moves. Was seen by PCP team last month for IBS/constipation. Pt states bowel movements consist of being constipated 3-4 days in between BMs and then when he is able to go it is diarrhea. Was instructed to use MiraLAX half to 1 capful every other day to help with stool. Has labs that are due to be completed at this time. Pt c/o fatigue and not sleeping well at night due to nausea for 1 month. Pt has noticed a hemorrhoid this past week. Pt denies fevers, blood in the stool. Has noticed mild dysuria over the last month. Denies STD concerns or penile discharge. PAST MEDICAL HISTORY: PAST MEDICAL HISTORY Diagnosis Date Alcohol abuse Anxiety Breast cyst right breast/growth on left breast Depression 01/24/2011 History of cocaine abuse (HCC) sober since 03/2018 IBS (irritable bowel syndrome) 01/24/2011 Marijuana use PMH - PAST MEDICAL HISTORY OF Color [employer] - Normal Polysubstance abuse (HCC) opioids, benzos, ecstacy, vinny. none since 2013 Unspecified asthma(493.90) PAST SURGICAL HISTORY Procedure Laterality Date COLONOSCOPY FLX DX W/COLLJ SPEC WHEN PFRMD 10/21/13 Colonoscopy ESOPHAGOGASTRODUODENOSCOPY TRANSORAL DIAGNOSTIC 04/07/14 EGD MASTECTOMY HX 05/12/13 bilateral for gynecomastia ALLERGIES Abilify [Aripiprazole], Celexa [Citalopram Hydrobromide], Ciprofloxacin, Fluoxetine, and Paxil [Paroxetine Hcl] MEDICATIONS Current Outpatient Medications Medication Sig Vdamnlctwfbkaci-Sahyoubql-AE (BROMFED DM) 2-30-10 mg/5 mL syrup Take 5 mL by mouth four times daily as needed. albuterol HFA (PROAIR HFA) 90 mcg/actuation inhaler Inhale 2 Puffs as instructed every 4 hours as needed. No current facility-administered medications for this visit. FAMILY HISTORY Problem Relation Age of Onset None Mother Hypertension Father Psychiatry Father anxiety Cancer Paternal Grandmother cervical/uterine - mets lung Diabetes Paternal Grandfather Emphysema Paternal Grandfather Social History Tobacco Use Smoking status: Never Smokeless tobacco: Never Vaping Use Vaping Use: Never used Substance Use Topics Alcohol use: Not Currently Comment: 2-3x/month, 5-6 beers (lt) Drug use: Not Currently Types: Marijuana, Cocaine, Benzodiazepines Comment: daily to several times a week. - quit a month ago. 05/05/15 REVIEW OF SYSTEMS GENERAL: No weight loss, malaise or fevers/chills HEENT: Negative for frequent or significant headaches, No changes in hearing or vision. NECK: Negative for lumps, goiter, pain and significant neck swelling RESPIRATORY: Negative for cough, hemoptysis, wheezing, dyspnea or shortness of breath CARDIOVASCULAR: Negative for chest pain, leg swelling, orthopnea, or palpitations GI: + diarrhea, constipation, nausea : + dysuria MUSCULOSKELETAL: Negative for joint pain or swelling. SKIN: Negative for lesions, rash, and itching ENDOCRINE: Negative for cold or heat intolerance, polyuria, polydipsia and goiter NEURO: No history of headaches, syncope, paralysis, seizures or tremors MOOD: Negative for depression, anxiety, or suicidal ideation. EXAM: BP 110/86 Pulse 81 Resp 16 Wt 73.9 kg (163 lb) SpO2 95% BMI 25.72 kg/m? PHYSICAL EXAM: General Appearance: Well appearing, alert, in no acute distress, well-hydrated, well nourished. Skin: Skin color, texture, turgor normal, no suspicious rashes or lesions. Head: Normocephalic, no masses, lesions, tenderness or abnormalities. Eyes: Anicteric sclera. Extraocular movements are intact. Lungs: Lungs clear to auscultation. No wheezing, rhonchi, rales. Heart: RRR without murmur, gallop, or rubs. No ectopy. Abdomen: Normal abdominal exam, Abdomen soft, non-tender. Bowel sounds normal. No masses, organomegaly. Neurologic: Gait normal. Sensation grossly intact. ASSESSMENT/PLAN: 1. Irritable bowel syndrome with constipation - ICD9: 564.1, ICD10: K58.1 (primary diagnosis) -Based off history and exam recommend consult to GI due to history of IBS -Instructed importance of water and fiber intake in diet -Instructed to use MiraLAX 1-2 times daily for constipation - CONSULT TO GASTROENTEROLOGY 2. Fatigue, unspecified type - ICD9: 780.79, ICD10: R53.83 -Get lab work completed from PCP. - CONSULT TO GASTROENTEROLOGY 3. Nausea - ICD9: 787.02, ICD10: R11.0 -Same plan is #1 4. Dysuria - ICD9: 788.1, ICD10: R30.0 a (more content not included)... [facility] 12-28-2021 Instructions Francisca Burton APRN.CNP - 12/28/2021 10:44 AM EDT Get labs & urine testing completed Continue to work on water & fiber intake Make continue with MiraLax 1-2 times per day as needed for constipation Schedule appointment with GI, . [facility] Provide stool sample to lab Follow up pending test results documented in this encounter [facility] 12-28-2021 History of Present illness Narrative This is a 31 year old male who presents today with: Patient presents with: Acute Visit: victorino has intestinal worms HISTORY OF PRESENT ILLNESS: Renee Giles is a 31 year old male. Patient presents with: Acute Visit: victorino has intestinal worms Patient of Dr. Rollins here in the office for concerns of intestinal parasites. Pt states stool looks like there could be worms or mucous , denies noticing if it moves. Was seen by PCP team last month for IBS/constipation. Pt states bowel movements consist of being constipated 3-4 days in between BMs and then when he is able to go it is diarrhea. Was instructed to use MiraLAX half to 1 capful every other day to help with stool. Has labs that are due to be completed at this time. Pt c/o fatigue and not sleeping well at night due to nausea for 1 month. Pt has noticed a hemorrhoid this past week. Pt denies fevers, blood in the stool. Has noticed mild dysuria over the last month. Denies STD concerns or penile discharge. PAST MEDICAL HISTORY: PAST MEDICAL HISTORY Diagnosis Date Alcohol abuse Anxiety Breast cyst right breast/growth on left breast Depression 01/24/2011 History of cocaine abuse (HCC) sober since 03/2018 IBS (irritable bowel syndrome) 01/24/2011 Marijuana use PMH - PAST MEDICAL HISTORY OF Color Vision - Normal Polysubstance abuse (HCC) opioids, benzos, ecstacy, vinny. none since 2013 Unspecified asthma(493.90) PAST SURGICAL HISTORY Procedure Laterality Date COLONOSCOPY FLX DX W/COLLJ SPEC WHEN PFRMD 10/21/13 Colonoscopy ESOPHAGOGASTRODUODENOSCOPY TRANSORAL DIAGNOSTIC 04/07/14 EGD MASTECTOMY HX 05/12/13 bilateral for gynecomastia ALLERGIES Abilify [Aripiprazole], Celexa [Citalopram Hydrobromide], Ciprofloxacin, Fluoxetine, and Paxil [Paroxetine Hcl] MEDICATIONS Current Outpatient Medications Medication Sig Lxajtybbsodcxin-Amsemcuem-CZ (BROMFED DM) 2-30-10 mg/5 mL syrup Take 5 mL by mouth four times daily as needed. albuterol HFA (PROAIR HFA) 90 mcg/actuation inhaler Inhale 2 Puffs as instructed every 4 hours as needed. No current facility-administered medications for this visit. FAMILY HISTORY Problem Relation Age of Onset None Mother Hypertension Father Psychiatry Father anxiety Cancer Paternal Grandmother cervical/uterine - mets lung Diabetes Paternal Grandfather Emphysema Paternal Grandfather Social History Tobacco Use Smoking status: Never Smokeless tobacco: Never Vaping Use Vaping Use: Never used Substance Use Topics Alcohol use: Not Currently Comment: 2-3x/month, 5-6 beers (lt) Drug use: Not Currently Types: Marijuana, Cocaine, Benzodiazepines Comment: daily to several times a week. - quit a month ago. 05/05/15 REVIEW OF SYSTEMS GENERAL: No weight loss, malaise or fevers/chills HEENT: Negative for frequent or significant headaches, No changes in hearing or vision. NECK: Negative for lumps, goiter, pain and significant neck swelling RESPIRATORY: Negative for cough, hemoptysis, wheezing, dyspnea or shortness of breath CARDIOVASCULAR: Negative for chest pain, leg swelling, orthopnea, or palpitations GI: + diarrhea, constipation, nausea : + dysuria MUSCULOSKELETAL: Negative for joint pain or swelling. SKIN: Negative for lesions, rash, and itching ENDOCRINE: Negative for cold or heat intolerance, polyuria, polydipsia and goiter NEURO: No history of headaches, syncope, paralysis, seizures or tremors MOOD: Negative for depression, anxiety, or suicidal ideation. EXAM: BP 110/86 Pulse 81 Resp 16 Wt 73.9 kg (163 lb) SpO2 95% BMI 25.72 kg/m PHYSICAL EXAM: General Appearance: Well appearing, alert, in no acute distress, well-hydrated, well nourished. Skin: Skin color, texture, turgor normal, no suspicious rashes or lesions. Head: Normocephalic, no masses, lesions, tenderness or abnormalities. Eyes: Anicteric sclera. Extraocular movements are intact. Lungs: Lungs clear to auscultation. No wheezing, rhonchi, rales. Heart: RRR without murmur, gallop, or rubs. No ectopy. Abdomen: Normal abdominal exam, Abdomen soft, non-tender. Bowel sounds normal. No masses, organomegaly. Neurologic: Gait normal. Sensation grossly intact. ASSESSMENT/PLAN: 1. Irritable bowel syndrome with constipation - ICD9: 564.1, ICD10: K58.1 (primary diagnosis) -Based off history and exam recommend consult to GI due to history of IBS -Instructed importance of water and fiber intake in diet -Instructed to use MiraLAX 1-2 times daily for constipation - CONSULT TO GASTROENTEROLOGY 2. Fatigue, unspecified type - ICD9: 780.79, ICD10: R53.83 -Get lab work completed from PCP. - CONSULT TO GASTROENTEROLOGY 3. Nausea - ICD9: 787.02, ICD10: R11.0 -Same plan is #1 4. Dysuria - ICD9: 788.1, ICD10: R30.0 acute -Complete urine testing. -Instructed to decrease caffeinated beverages and increase water intake. -Denied wanting STD testing. - URINALYSIS, WITH MICROSCOPIC - URINE CULTURE 5. Diarrhea, unspecified type - ICD9: 787.91, ICD10: R19.7 -Complete stool sample - ENTERIC BACTERIAL PANEL BY PCR - C. DIFFICILE PCR - OVA + PARA MICROSCOPIC 6. Screening cholesterol level - ICD9: V77.91, ICD10: Z13.220 - LIPID PANEL, NONFASTING Follow-up pending test results Discussed treatment plan and patient voices understanding. Patient's questions answered appropriately. Medications and potential side effects were discussed and patient voices understanding. Francisca Burton APRN.KARLOS This note was partially generated using Nano[employer]O voice recognition system. Note was reviewed for accuracy. There may be minor misspellings or grammar miscues with K[employer]Contact[employer] voice recognition. documented in this encounter [facility] 12-09-2021 Hospital Discharge instructions Patient Education 12/09/2021 20:41:02 R.I.C.E. RICE RICE stands for rest, ice, compression, and elevation. Doing these things helps limit pain and swelling after an injury. RICE also helps injuries heal faster. Use RICE for sprains, strains, and severe bruises or bumps. Follow the tips on this handout and begin RICE as soon as possible after an injury. Rest Pain is your body s way of telling you to rest an injured area. Whether you have hurt an elbow, hand, foot, or knee, limiting its use will prevent further injury and help you heal. Ice Applying ice right after an injury helps prevent swelling and reduce pain. Don t place ice directly on your skin. Wrap a cold pack or bag of ice in a thin cloth. Place it over the injured area. Ice for 10 minutes every 3 hours. Don t ice for more than 20 minutes at a time. Compression Putting pressure (compression) on an injury helps prevent swelling and provides support. Wrap the injured area firmly with an elastic bandage. If your hand or foot tingles, becomes discolored, or feels cold to the touch, the bandage may be too tight. Rewrap it more loosely. If your bandage becomes too loose, rewrap it. Do not wear an elastic bandage overnight. Elevation Keeping an injury elevated helps reduce swelling, pain, and throbbing. Elevation is most effective when the injury is kept elevated higher than the heart. Call your healthcare provider if you notice any of the following: Fingers or toes feel numb, are cold to the touch, or change color. Skin looks shiny or tight. Pain, swelling, or bruising worsens and is not improved with elevation. [id number] [employer]. [address] [place] [address], [place] [address]. All rights reserved. This information is not intended as a substitute for professional medical care. Always follow your healthcare professional's instructions. Follow Up Care 12/09/2021 19:59:09 With:PHYSICIAN, NOT RECORDED Address:Unknown When:2-4 days [facility] Patrickcarlos enrqiue Mcginnis 12-09-2021 Note Discharge Instructions Thank you for allowing [facility] to assist you with your healthcare needs. The following is important discharge information regarding your hospital visit. Diagnosis from Today's Visit Knee pain-swelling Wrist pain-swelling What to Do Next Instructions from Your Care Team No qualifying data available. Post Acute Orders No qualifying data available. You Need to Schedule the Following Appointments Follow Up with PHYSICIAN, NOT RECORDED When Within 2-4 days Allergies ciprofloxacin Medications Please ask your primary doctor or pharmacist before taking any other medication not listed, including over the counter drugs, herbal medications, vitamins and or supplements as they may interact with your home medications. Please take this list to your next doctor s visit. Bring all medications you take, including over the counter medications, herbals and other supplements with you to your doctor s visit. Patients and families are reminded to discard old lists and to update any records with all medication providers or retail pharmacies. Education Materials RICE RICE stands for rest, ice, compression, and elevation. Doing these things helps limit pain and swelling after an injury. RICE also helps injuries heal faster. Use RICE for sprains, strains, and severe bruises or bumps. Follow the tips on this handout and begin RICE as soon as possible after an injury. Rest Pain is your body s way of telling you to rest an injured area. Whether you have hurt an elbow, hand, foot, or knee, limiting its use will prevent further injury and help you heal. Ice Applying ice right after an injury helps prevent swelling and reduce pain. Don t place ice directly on your skin. Wrap a cold pack or bag of ice in a thin cloth. Place it over the injured area. Ice for 10 minutes every 3 hours. Don t ice for more than 20 minutes at a time. Compression Putting pressure (compression) on an injury helps prevent swelling and provides support. Wrap the injured area firmly with an elastic bandage. If your hand or foot tingles, becomes discolored, or feels cold to the touch, the bandage may be too tight. Rewrap it more loosely. If your bandage becomes too loose, rewrap it. Do not wear an elastic bandage overnight. Elevation Keeping an injury elevated helps reduce swelling, pain, and throbbing. Elevation is most effective when the injury is kept elevated higher than the heart. Call your healthcare provider if you notice any of the following: Fingers or toes feel numb, are cold to the touch, or change color. Skin looks shiny or tight. Pain, swelling, or bruising worsens and is not improved with elevation. [phone] [employer]. [address] [place] [address]. All rights reserved. This information is not intended as a substitute for professional medical care. Always follow your healthcare professional's instructions. Additional Information VACCINATE! IT SAVES LIVES! Members of the community who have not yet received the COVID-19 vaccine and would like to receive it can visit one of [facility] vaccine clinics. There are many vaccine clinic locations within the [facility]. For locations and available times, please visit [email or web address]. It is important to note that some COVID mobile vaccine clinics are held outdoors and may be canceled in rainy or stormy conditions. To learn more about pediatric vaccinations (ages 5-11), we invite you to visit the [facility] webpage. [email or web address] -[email or web address] To learn more about the COVID-19 vaccine, we invite you to visit the [facility] website for a list of frequently asked questions. [email or web address] [email or web address] [facility] Patient Portal Access Instructions: Stay connected with your healthcare team and access your personal medical information anytime with the [facility] Patient Portal. If you would like a full copy of your medical records please contact the [facility] Medical Records Department Saturday through Saturday between 8a.m. and 4:30p.m. Please follow the directions below to access the portal: 1.Access the email account you provided upon registration to the [facility] specialty [facility] at [facility].2.Look for an invitation email from [facility].3.Open the email and access the invitation link: Accept Invitation to [email or web address].Fill in the required meza to create your account. Sign into [email or web address] with your username and password that you created in the above steps to stay up to date. You can then view a summary of results, a summary of your visits, and the ability to download your summaries to your computer or send the information securely to a physician. Remember that your healthcare information is confidential, so carefully consider who you will allow to register on the [email or web address] Patient Portal for access to your information. You can also access the [email or web address] Patient Portal on the [employer]. Simply click on Health Records under Health Data and then click on the [employer] logo. HOW TO SAFELY DISPOSE OF PRESCRIPTION MEDICATIONS Please use one of the following methods to safely dispose of your unused medications. 1.Use a drug disposal kit: the drug disposal pouch allows you to safely discard your old and unused drugs. Ask your nurse to give you one when you are discharged.2.Visit a local take-back location: Many local pharmacies and police departments have programs that collect old and unwanted prescription drugs. Call your local pharmacy or go to http://Certess.Truzip/5D2Pn3a to find one close to you.3.Make use of household items: Use cat litter or old coffee grounds to dispose medications if other options are not available. Mix your drugs with these household products, seal them in an airtight container and throw it into the garbage. Call [facility]: [phone] to be sure your drugs can be disposed of in this way. Some medicines may require a different approach.4.Never flush your medications down the toilet. IF YOU HAVE BEEN PRESCRIBED AN OPIOIDS FOR PAIN If you have been prescribed an opioid (such as hydrocodone, oxycodone or morphine), it is critical to understand the possible side effects and risks of opioid pain medications. Even when taken as directed, opioids can have several side effects including: Tolerance, meaning you might need to take more of a medication for the same pain relief. Nausea, vomiting and/or constipation. Sleepiness, dizziness, dry mouth, confusion, depression or itching. Physical dependence, meaning you have withdrawal symptoms when a medication is stopped ? this can develop within a few days. KNOW YOUR RESPONSIBILITIES It is important to know exactly how much and how often to take the opioid pain medications you are prescribed. Never take opioids in higher amounts or more often than prescribed. Do not combine opioids with alcohol or other drugs that cause drowsiness, such as benzodiazepines, also known as benzos, including diazepam and alprazolam, muscle relaxants or sleep aids. Never sell or share prescription opioids. This is illegal. Store opioids in a secure place and out of reach of others (including children, family, friends and visitors). The last page(s) of this document has been signed and retained as a CHART COPY Signatures Patient Education Materials R.I.C.E. Medication Leaflets My discharge plan and instructions have been reviewed and explained to me and I,RENEE GILES understand my current condition and have read and understand these discharge instructions. I have received a written copy of the plan/instructions. If I have questions, I am aware that I should contact my doctor. 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 HISTORY: ORDERING SYSTEM PROVIDED HISTORY: Reason for Exam: pain FINDINGS: No fracture or dislocation. No radiopaque foreign body. IMPRESSION: No acute osseous abnormality of the right hand or wrist. Interpreted by: Patrick Barnhart Preliminary Report By: Patrick Barnhart Electronically signed By Patrick Barnhart Dictated Date: 12/09/2021 8:31:13 PM Prelim Date: 12/09/2021 8:32:39 PM Sign Date: 12/09/2021 8:32:39 PM Ordering Provider: VIOLA VALVERDE [facility] 12-09-2021 Note ORIGINAL EXAMINATION: 6 XRAY VIEWS OF THE right upper EXTREMITY 12/09/2021 8:30 pm COMPARISON: None. HISTORY: ORDERING SYSTEM PROVIDED HISTORY: Reason for Exam: pain FINDINGS: No fracture or dislocation. No radiopaque foreign body. IMPRESSION: No acute osseous abnormality of the right hand or wrist. Interpreted by: Patrick Barnhart Preliminary Report By: Patrick Barnhart Electronically signed By Patrick Barnhart Dictated Date: 12/09/2021 8:31:13 PM Prelim Date: 12/09/2021 8:32:39 PM Sign Date: 12/09/2021 8:32:39 PM Ordering Provider: [facility] 12-06-2021 Note HNO ID: [id number] Author: Smiley Angulo APRN.CLINICAL STATISTICS MANAGER Service: ? Author Type: Nurse Practitioner Type: Progress Notes Filed: 12/06/2021 8:14 AM Note Text: 12/06/2021 Patient presents with: Acute Visit: Stomach issues x several months SUBJECTIVE: This is a 31 year old that is here today for Above Complaints. ONSET: several year LOCATION: lower abdomen DURATION: intermittent CHARACTERISTICS: nausea and cramping AGGRAVATING FEATURES: none ALLEVIATING FEATURES: has used miralax and stool softeners but they make him nauseated RADIATION: none TIMING: + constipation, + fatigue, + diarrhea +bloating Has a hx of IBS Last BM yesterday- sometimes normal consistency and sometimes lose Denies weight loss, fever, chills, vomiting, hematochezia, and melana PAST MEDICAL HISTORY Diagnosis Date Alcohol abuse Anxiety Breast cyst right breast/growth on left breast Depression 01/24/2011 History of cocaine abuse ([facility]) sober since 03/2018 IBS (irritable bowel syndrome) 01/24/2011 Marijuana use PMH - PAST MEDICAL HISTORY OF Color Vision - Normal Polysubstance abuse (HCC) opioids, benzos, ecstacy, vinny. none since 2013 Unspecified asthma(493.90) ALLERGIES Abilify [Aripiprazole], Celexa [Citalopram Hydrobromide], Ciprofloxacin, Fluoxetine, and Paxil [Paroxetine Hcl] MEDICATIONS Current Outpatient Medications Medication Sig Bnpnfhcviqwwswd-Ishyhdzvn-GJ (BROMFED DM) 2-30-10 mg/5 mL syrup Take 5 mL by mouth four times daily as needed. albuterol HFA (PROAIR HFA) 90 mcg/actuation inhaler Inhale 2 Puffs as instructed every 4 hours as needed. No current facility-administered medications for this visit. Medications and allergies reviewed by this provider. SOCIAL HISTORY Social History Tobacco Use Smoking status: Never Smokeless tobacco: Never Vaping Use Vaping Use: Never used Substance Use Topics Alcohol use: Not Currently Comment: 2-3x/month, 5-6 beers (lt) Drug use: Not Currently Types: Marijuana, Cocaine, Benzodiazepines Comment: daily to several times a week. - quit a month ago. 05/05/15 REVIEW OF SYSTEMS All other reviewed and negative other than HPI. OBJECTIVE: BP 112/78 Pulse 76 Resp 16 Wt 73.5 kg (162 lb) SpO2 98% BMI 25.56 kg/m? . Vital signs reviewed by this provider. APPEARANCE Well appearing, alert, in no acute distress, well-hydrated, well nourished. EYES conjunctiva and sclera normal. HEART RRR with normal S1 and S2, no murmurs, no gallops, no JVD appreciated LUNG clear to auscultation. No wheezes, rhonchi, or rales ABDOMEN bowel sounds normoactive, no bruits, soft, non-tender, non-distended, without organomegaly or palpable masses, No rebound tenderness or guarding SKIN Skin color, texture, turgor normal, no suspicious rashes or lesions to exposed skin COVID-19 VACCINE(1) Never done PNEUMOCOCCAL(1 - PCV) Never done HEPATITIS C SCREENING Never done HIV SCREENING Never done DTAP,TDAP,TD(7 - Td or Tdap) due on 08/24/2015 INFLUENZA(1) due on 11/09/2021 HEPATITIS B Completed ASSESSMENT/PLAN: 1. Irritable bowel syndrome with constipation - ICD9: 564.1, ICD10: K58.1 - recommend he start miralax 1/2 cap to 1 cap daily or every other day, may use stool softeners as well. Try to drink at least 32 ounces or more of water daily- gaol would be 96 ounces. Increase fiber in diet with fiber supplement- start slow with the fiber and add as tolerated - CBC - COMP METABOLIC PANEL - follow-up in 4-6 weeks if not improving- consider linzess if no improvement 2. Screening for hyperlipidemia - ICD9: V77.91, ICD10: Z13.220 - LIPID PANEL BASIC Smiley Podlogar, CHAINSTITCH FELLED SEAM OPERATOR.CLINICAL STATISTICS MANAGER Prescription instructions reviewed with patient as applicable. Patient advised if symptoms do not improve or if symptoms worsen sooner, to contact their primary care physician. Potential red flag symptoms discussed with the patient. Reviewed appropriate action plan to take if red flag symptoms occur. Patient agreeable to treatment plan. I spent a total of 30 minutes on the date of the service which included preparing to see the patient, [id number] patient care, completing clinical documentation, obtaining and/or reviewing separately obtained history, performing a medically appropriate examination, counseling and educating the patient/family/caregiver, and ordering medications, tests, or procedures. [facility] 12-06-2021 History of Present illness Narrative 12/06/2021 Patient presents with: Acute Visit: Stomach issues x several months SUBJECTIVE: This is a 31 year old that is here today for Above Complaints. ONSET: several year LOCATION: lower abdomen DURATION: intermittent CHARACTERISTICS: nausea and cramping AGGRAVATING FEATURES: none ALLEVIATING FEATURES: has used miralax and stool softeners but they make him nauseated RADIATION: none TIMING: + constipation, + fatigue, + diarrhea +bloating Has a hx of IBS Last BM yesterday- sometimes normal consistency and sometimes lose Denies weight loss, fever, chills, vomiting, hematochezia, and melana PAST MEDICAL HISTORY Diagnosis Date Alcohol abuse Anxiety Breast cyst right breast/growth on left breast Depression 01/24/2011 History of cocaine abuse (HCC) sober since 03/2018 IBS (irritable bowel syndrome) 01/24/2011 Marijuana use PMH - PAST MEDICAL HISTORY OF Color Vision - Normal Polysubstance abuse (HCC) opioids, benzos, ecstacy, vinny. none since 2013 Unspecified asthma(493.90) ALLERGIES Abilify [Aripiprazole], Celexa [Citalopram Hydrobromide], Ciprofloxacin, Fluoxetine, and Paxil [Paroxetine Hcl] MEDICATIONS Current Outpatient Medications Medication Sig Xsekzocjtxxzsom-Tnfhemjsm-CA (BROMFED DM) 2-30-10 mg/5 mL syrup Take 5 mL by mouth four times daily as needed. albuterol HFA (PROAIR HFA) 90 mcg/actuation inhaler Inhale 2 Puffs as instructed every 4 hours as needed. No current facility-administered medications for this visit. Medications and allergies reviewed by this provider. SOCIAL HISTORY Social History Tobacco Use Smoking status: Never Smokeless tobacco: Never Vaping Use Vaping Use: Never used Substance Use Topics Alcohol use: Not Currently Comment: 2-3x/month, 5-6 beers (lt) Drug use: Not Currently Types: Marijuana, Cocaine, Benzodiazepines Comment: daily to several times a week. - quit a month ago. 05/05/15 REVIEW OF SYSTEMS All other reviewed and negative other than HPI. OBJECTIVE: BP 112/78 Pulse 76 Resp 16 Wt 73.5 kg (162 lb) SpO2 98% BMI 25.56 kg/m . Vital signs reviewed by this provider. APPEARANCE Well appearing, alert, in no acute distress, well-hydrated, well nourished. EYES conjunctiva and sclera normal. HEART RRR with normal S1 and S2, no murmurs, no gallops, no JVD appreciated LUNG clear to auscultation. No wheezes, rhonchi, or rales ABDOMEN bowel sounds normoactive, no bruits, soft, non-tender, non-distended, without organomegaly or palpable masses, No rebound tenderness or guarding SKIN Skin color, texture, turgor normal, no suspicious rashes or lesions to exposed skin COVID-19 VACCINE(1) Never done PNEUMOCOCCAL(1 - PCV) Never done HEPATITIS C SCREENING Never done HIV SCREENING Never done DTAP,TDAP,TD(7 - Td or Tdap) due on 08/24/2015 INFLUENZA(1) due on 11/09/2021 HEPATITIS B Completed ASSESSMENT/PLAN: 1. Irritable bowel syndrome with constipation - ICD9: 564.1, ICD10: K58.1 - recommend he start miralax 1/2 cap to 1 cap daily or every other day, may use stool softeners as well. Try to drink at least 32 ounces or more of water daily- gaol would be 96 ounces. Increase fiber in diet with fiber supplement- start slow with the fiber and add as tolerated - CBC - COMP METABOLIC PANEL - follow-up in 4-6 weeks if not improving- consider linzess if no improvement 2. Screening for hyperlipidemia - ICD9: V77.91, ICD10: Z13.220 - LIPID PANEL BASIC Smiley Angulo APRN.CNP Prescription instructions reviewed with patient as applicable. Patient advised if symptoms do not improve or if symptoms worsen sooner, to contact their primary care physician. Potential red flag symptoms discussed with the patient. Reviewed appropriate action plan to take if red flag symptoms occur. Patient agreeable to treatment plan. I spent a total of 30 minutes on the date of the service which included preparing to see the patient, [id number] patient care, completing clinical documentation, obtaining and/or reviewing separately obtained history, performing a medically appropriate examination, counseling and educating the patient/family/caregiver, and ordering medications, tests, or procedures. documented in this encounter [facility] 08-11-2021 Note HNO ID: [id number] Author: RT Julianna(R) Service: Radiology Author Type: Technologist Type: Progress Notes Filed: 08/11/2021 12:06 PM Note Text: Radiology Service Progress Note PATIENT NAME: Renee Giles DATE OF SERVICE: August 11, 2021 TIME: 11:56 AM PATIENT IDENTITY VERIFICATION COMPLETED USING TWO (2) IDENTIFIERS: Name and Date of confirmed by patient verbally. FALL SCREENING: Has the patient had 2 falls in the last year or 1 fall with injury or currently using an Ambulatory Assistive Device (Walker, Cane, Wheelchair, Crutches, etc.)? No PATIENT GENDER DATA: Male PATIENT RELEVANT IMPLANT DATA REVIEWED: Yes RADIOLOGY DEPARTMENT: General X-ray: Exam(s) Completed: Chest X-Ray PERIPHERAL IV DATA: Not applicable SIGNED BY: RT Julianna(R) August 11, 2021 11:56 AM [facility] 08-11-2021 Note HNO ID: [id number] Author: Americo Bradley APRN.CNP Service: ? Author Type: Nurse Practitioner Type: Progress Notes Filed: 08/11/2021 2:02 PM Note Text: Subjective HPI HPI Renee Giles is a 30 year old male who presents today for CC of cough, chest congestion. This started 4 days ago, worsening. Has tried otc medication for relief. Symptoms are worsened by nothing. Risk factors sick exposures at work. Hx of asthma. Nonsmoker. Denies cp/sob. .Patient presents with: Cough: chest congestion x4 days PAST MEDICAL HISTORY Diagnosis Date - Alcohol abuse - Anxiety - Breast cyst right breast/growth on left breast - Depression 01/24/2011 - History of cocaine abuse (HCC) sober since 03/2018 - IBS (irritable bowel syndrome) 01/24/2011 - Marijuana use - PMH - PAST MEDICAL HISTORY OF Color Vision - Normal - Polysubstance abuse (HCC) opioids, benzos, ecstacy, vinny. none since 2013 - Unspecified asthma(493.90) PAST SURGICAL HISTORY Procedure Laterality Date - COLONOSCOPY FLX DX W/COLLJ SPEC WHEN PFRMD 10/21/13 Colonoscopy - ESOPHAGOGASTRODUODENOSCOPY TRANSORAL DIAGNOSTIC 04/07/14 EGD - MASTECTOMY HX 05/12/13 bilateral for gynecomastia ALLERGIES Abilify [Aripiprazole], Celexa [Citalopram Hydrobromide], Ciprofloxacin, Fluoxetine, and Paxil [Paroxetine Hcl] MEDICATIONS No prescriptions on file. FAMILY HISTORY Problem Relation Age of Onset - None Mother - Hypertension Father - Psychiatry Father anxiety - Cancer Paternal Grandmother cervical/uterine - mets lung - Diabetes Paternal Grandfather - Emphysema Paternal Grandfather Social History Tobacco Use - Smoking status: Never Smoker - Smokeless tobacco: Never Used Vaping Use - Vaping Use: Never used Substance Use Topics - Alcohol use: Not Currently Comment: 2-3x/month, 5-6 beers (lt) - Drug use: Not Currently Types: Marijuana, Cocaine, Benzodiazepines Comment: daily to several times a week. - quit a month ago. 05/05/15 Review of Systems Constitutional: Negative for fever. HENT: Positive for congestion. Negative for ear pain, nosebleeds and sore throat. Respiratory: Positive for cough. Negative for shortness of breath and wheezing. Cardiovascular: Negative for chest pain. Musculoskeletal: Negative for neck pain. Skin: Negative for itching and rash. Objective Blood pressure 124/82, pulse 79, temperature 36.9 ?C (98.4 ?F), resp. rate 20, weight 73.1 kg (161 lb 3.2 oz), SpO2 98 %. Physical Exam Constitutional: General: He is not in acute distress. Appearance: He is not toxic-appearing or diaphoretic. HENT: Head: Normocephalic and atraumatic. Cardiovascular: Rate and Rhythm: Normal rate and regular rhythm. Heart sounds: Normal heart sounds, S1 normal and S2 normal. Pulmonary: Effort: Pulmonary effort is normal. Breath sounds: Normal breath sounds. Lymphadenopathy: Cervical: No cervical adenopathy. Right cervical: No superficial cervical adenopathy. Left cervical: No superficial cervical adenopathy. Neurological: Mental Status: He is alert and oriented to person, place, and time. Gait: Gait is intact. ASSESSMENT/PLAN: 1. Sinobronchitis - ICD9: 473.9, 490, ICD10: J32.9, J40 (primary diagnosis) - Supportive care with plenty of fluids, rest, and analgesia prn. - Follow up in 3-5 days if symptoms persist or worsen. - DOXYCYCLINE MONOHYDRATE 100 MG TABLET - [id number] 2 MG-30 MG-10 MG/5 ML ORAL SYRUP 2. Cough - ICD9: 786.2, ICD10: R05.9 xr negative - XR CHEST 2V FRONTAL/LAT IMPRESSION: No acute radiographic abnormality. Dictated by : KINGSTON REYNOSO MD - [id number] 2 MG-30 MG-10 MG/5 ML ORAL SYRUP - ALBUTEROL SULFATE HFA 90 MCG/ACTUATION AEROSOL INHALER 3. History of asthma - ICD9: V12.69, ICD10: Z87.09 Will re order inhaler -use medication as prescribed -follow up if symptoms persist, worsen, change - PREDNISONE 20 MG TABLET Agrees to plan Americo Bradley APRN.[facility] 08-11-2021 History of Present illness Narrative Subjective HPI HPI Renee Giles is a 30 year old male who presents today for CC of cough, chest congestion. This started 4 days ago, worsening. Has tried otc medication for relief. Symptoms are worsened by nothing. Risk factors sick exposures at work. Hx of asthma. Nonsmoker. Denies cp/sob. .Patient presents with: Cough: chest congestion x4 days PAST MEDICAL HISTORY Diagnosis Date Alcohol abuse Anxiety Breast cyst right breast/growth on left breast Depression 01/24/2011 History of cocaine abuse (HCC) sober since 03/2018 IBS (irritable bowel syndrome) 01/24/2011 Marijuana use PMH - PAST MEDICAL HISTORY OF Color Vision - Normal Polysubstance abuse (HCC) opioids, benzos, ecstacy, vinny. none since 2013 Unspecified asthma(493.90) PAST SURGICAL HISTORY Procedure Laterality Date COLONOSCOPY FLX DX W/COLLJ SPEC WHEN PFRMD 10/21/13 Colonoscopy ESOPHAGOGASTRODUODENOSCOPY TRANSORAL DIAGNOSTIC 04/07/14 EGD MASTECTOMY HX 05/12/13 bilateral for gynecomastia ALLERGIES Abilify [Aripiprazole], Celexa [Citalopram Hydrobromide], Ciprofloxacin, Fluoxetine, and Paxil [Paroxetine Hcl] MEDICATIONS No prescriptions on file. FAMILY HISTORY Problem Relation Age of Onset None Mother Hypertension Father Psychiatry Father anxiety Cancer Paternal Grandmother cervical/uterine - mets lung Diabetes Paternal Grandfather Emphysema Paternal Grandfather Social History Tobacco Use Smoking status: Never Smoker Smokeless tobacco: Never Used Vaping Use Vaping Use: Never used Substance Use Topics Alcohol use: Not Currently Comment: 2-3x/month, 5-6 beers (lt) Drug use: Not Currently Types: Marijuana, Cocaine, Benzodiazepines Comment: daily to several times a week. - quit a month ago. 05/05/15 Review of Systems Constitutional: Negative for fever. HENT: Positive for congestion. Negative for ear pain, nosebleeds and sore throat. Respiratory: Positive for cough. Negative for shortness of breath and wheezing. Cardiovascular: Negative for chest pain. Musculoskeletal: Negative for neck pain. Skin: Negative for itching and rash. Objective Blood pressure 124/82, pulse 79, temperature 36.9 C (98.4 F), resp. rate 20, weight 73.1 kg (161 lb 3.2 oz), SpO2 98 %. Physical Exam Constitutional: General: He is not in acute distress. Appearance: He is not toxic-appearing or diaphoretic. HENT: Head: Normocephalic and atraumatic. Cardiovascular: Rate and Rhythm: Normal rate and regular rhythm. Heart sounds: Normal heart sounds, S1 normal and S2 normal. Pulmonary: Effort: Pulmonary effort is normal. Breath sounds: Normal breath sounds. Lymphadenopathy: Cervical: No cervical adenopathy. Right cervical: No superficial cervical adenopathy. Left cervical: No superficial cervical adenopathy. Neurological: Mental Status: He is alert and oriented to person, place, and time. Gait: Gait is intact. ASSESSMENT/PLAN: 1. Sinobronchitis - ICD9: 473.9, 490, ICD10: J32.9, J40 (primary diagnosis) - Supportive care with plenty of fluids, rest, and analgesia prn. - Follow up in 3-5 days if symptoms persist or worsen. - DOXYCYCLINE MONOHYDRATE 100 MG TABLET - [id number] 2 MG-30 MG-10 MG/5 ML ORAL SYRUP 2. Cough - ICD9: 786.2, ICD10: R05.9 xr negative - XR CHEST 2V FRONTAL/LAT IMPRESSION: No acute radiographic abnormality. Dictated by : KINGSTON REYNOSO MD - [id number] 2 MG-30 MG-10 MG/5 ML ORAL SYRUP - ALBUTEROL SULFATE HFA 90 MCG/ACTUATION AEROSOL INHALER 3. History of asthma - ICD9: V12.69, ICD10: Z87.09 Will re order inhaler -use medication as prescribed -follow up if symptoms persist, worsen, change - PREDNISONE 20 MG TABLET Agrees to plan Americo Bradley APRN.KARLOS documented in this encounter [facility] 08-09-2021 Miscellaneous Notes Patient notified. France Garcia MA Patient needs to follow-up. I also have plenty of open appointments as well as late nights on Saturday. Thanks, Smiley Angulo APRN.CNP Pt called and is notified of providers message and instructions. Pt voices understanding, he says the Saturday wouldn't work for him. Tried to offer him Next Saturday at 7 pm and Pt states he will need to call back in to see when he could schedule and OV. Pt asking if provider could send an inhaler in for him. Please call and advise. Thea Johnson RN He needs to come in for an OV since it has been more than 2 years since his last OV. We have late hours on Tuesdays and I am here the morning of Saturday 08/26 if that works better for him. Patient calling to ask if Dr. Rollins would reorder his albuterol ProAir inhaler. Patient reports he has had asthma since he was young. He states has has been using older inhalers for awhile and is now running out. Explained to patient that his last OV was 04/01/19 and he is due for a visit and examination in order to refill any scripts. Patient states with his schedule it is nearly impossible for him to make an appt. VV was offered and patient declined. Requesting [facility] in [place]. Patient asked for Dr. Rollins to be updated of this request. Please advise patient on options. Thank you. documented in this encounter [facility] Evaluation + Plan note No data available for this section [facility] Diagnosis Irritable bowel syndrome with constipation- Primary Irritable bowel syndrome Screening for hyperlipidemia Screening for lipoid disorders [facility] Diagnosis Irritable bowel syndrome with constipation- Primary Irritable bowel syndrome Fatigue, unspecified type Nausea Nausea alone Dysuria Diarrhea, unspecified type Screening cholesterol level Screening for lipoid disorders documented in this encounter [facility] Summary Purpose Family History No Family History Records FoundNo Family History Records Found Advance Directives No Advanced Directives Records FoundNo Advanced Directives Records Found Reason for Referral Specialty Diagnoses / Procedures Referred By Ramin miles Referred To Contact Gastroenterology Diagnoses Irritable bowel syndrome with constipation Fatigue, unspecified type Nausea Procedures CONSULT TO GASTROENTEROLOGY OFFICE/OUTPATIENT [facility] 60-74 MINUTES Francisca Burton APRN.CLINICAL STATISTICS MANAGER [address] [place] [address] Referral ID Status Reason Start Date Expiration Date Visits Requested Visits Authorized [id number] Authorized PCP Requested Referral 2 12/28/2022 1 1 Additional Source Comments Source Comments (unrecognize d section and content) In the event this informatio n is protected by the Federal Confidentiality of Alcohol and Drug Abuse Patient Records regulations: The Federal rules restrict any use of the information to criminally investigate or prosecute any alcohol or drug abuse patient.[facility] the event this information is protected by the Federal Confidentiality of Alcohol and Drug Abuse Patient Records regulations: The Federal rules restrict any use of the information to criminally investigate or prosecute any alcohol or drug abuse patient.[facility] Hospital[facility] the event this information is protected by the Federal Confidentiality of Alcohol and Drug Abuse Patient Records regulations: The Federal rules restrict any use of the information to criminally investigate or prosecute any alcohol or drug abuse patient.[facility] Hospital[facility] the event this information is protected by the Federal Confidentiality of Alcohol and Drug Abuse Patient Records regulations: The Federal rules restrict any use of the information to criminally investigate or prosecute any alcohol or drug abuse patient.[facility] HospitalIn the event this information is protected by the Federal Confidentiality of Alcohol and Drug Abuse Patient Records regulations: The Federal rules restrict any use of the information to criminally investigate or prosecute any alcohol or drug abuse patient.[facility] HospitalIn the event this information is protected by the Federal Confidentiality of Alcohol and Drug Abuse Patient Records regulations: The Federal rules restrict any use of the information to criminally investigate or prosecute any alcohol or drug abuse patient.[facility] HospitalIn the event this information is protected by the Federal Confidentiality of Alcohol and Drug Abuse Patient Records regulations: The Federal rules restrict any use of the information to criminally investigate or prosecute any alcohol or drug abuse patient.[facility] Hospital[facility] the event this information is protected by the Federal Confidentiality of Alcohol and Drug Abuse Patient Records regulations: The Federal rules restrict any use of the information to criminally investigate or prosecute any alcohol or drug abuse patient.[facility] HospitalIn the event this information is protected by the Federal Confidentiality of Alcohol and Drug Abuse Patient Records regulations: The Federal rules restrict any use of the information to criminally investigate or prosecute any alcohol or drug abuse patient.[facility] Hospital[facility] the event this information is protected by the Federal Confidentiality of Alcohol and Drug Abuse Patient Records regulations: The Federal rules restrict any use of the information to criminally investigate or prosecute any alcohol or drug abuse patient.[facility] Reason for Visit (unrecogniz ed section and content) Reason Comments Cough chest congestion x4 days Reason Comments Acute Visit Stomach issues x sev eral months Reason Comments Acute Visit thinks has intestina l worms Reason Comments Results Reason Comments Patient Question Reason Comments Clinical Update Reason Comments Patient Update Care Teams (unrecognized sec tion and content) Forensic Engineer Relationship Specialty Start Date End Date Kun Rollins MD [address], [place] [id number] PCP - General Family Practice 04/01/19 Forensic Engineer Relationship Specialty Start Date End Date Kun Rollins MD [address], [place] [id number] PCP - General Family Medicine 04/01/19 Forensic Engineer Relationship Specialty Start Date End Date Kun Rollins MD [address], [place] [id number] PCP - General Family Medicine 04/01/19 Forensic Engineer Relationship Specialty Start Date End Date Kun Rollins MD [address], [place] [id number] PCP - General Family Medicine 04/01/19 Forensic Engineer Relationship Specialty Start Date End Date Kun Rollins MD [address], [place] [id number] PCP - General Family Medicine 04/01/19 Forensic Engineer Relationship Specialty Start Date End Date Kun Rollins MD [address], [place] [id number] PCP - General Family Medicine 04/01/19 Care Team (unrecognized sect ion and content) Care Team Personnel Name: PHYSICIAN, NOT RECORDED Member Role: Primary Care Physician Care Team Related Persons Name: SHAWN GILES (unrecognized sect ion and content) No Status Records FoundNo Status Records Found INFORMATION SOURCE (unrecogn ized section and content) DATE CREATED AUTHOR AUTHOR'S ORGANIZ ATION 03/01/2022 [facility] FOR RECORDS PERTAINING TO PATIENTS WHO ARE OR HAVE BEEN ENROLLED IN A CHEMICAL DEPENDENCY/SUBSTANCEABUSE PROGRAM, SOME INFORMATION MAY BE OMITTED. This clinical summary was aggregated from multiple sources. Caution should be exercised in using it in the provision of clinical care. This summary normalizes information from multiple sources, and as a consequence, information in this document may materially change the coding, format and clinical context of patient data. In addition, data may be omitted in some cases. CLINICAL DECISIONS SHOULD BE BASED ON THE PRIMARY CLINICAL RECORDS. [facility]. provides no warranty or guarantee of the accuracy or completeness of information in this document.
[2023-03-11] MEDS: LORazepam 2 MG/ML Syringe 1 MG IV (02:14)
[2023-03-11] MEDS: Lidocaine 2% /Epi 1:100 (20ml) 20 ML VIAL INFILT (02:14)
--- NOTE | 2023-03-11 04:37 | EX.ED.DYSGE1 ---
HPI History of Present Illness Chief Complaint: Fall Informant: patient and spouse/S.O. Narrative Narrative: Patient is a 32-year-old male with past medical history of anxiety and depression. He states he was in a wedding today and had been drinking all day . He states just prior to arrival he was walking down the stairs when he lost his balance and fell striking his head/face on the stair. He denies any loss of consciousness but states he sustained a laceration to his face and that his lip is hanging on by a thread . He states that he fears he will need sutures or potential surgery to fix it and therefore comes in for evaluation [facility] Medical History Alcohol abuse Anxiety Cannabis withdrawal Compression fracture Depression Diarrhea double mastectomy Fatigue Generalized anxiety disorder History of cocaine abuse Irritable bowel syndrome with constipation Major depressive disorder, recurrent severe without psychotic features Moderate cannabis use disorder, in early remission Nausea Unspecified asthma Home Medications amoxicillin 875 mg-potassium clavulanate 125 mg tablet 1 tab PO BID 10 days #20 tabs 03/11/23 [Rx Last Taken Unknown] hydrocodone-acetaminophen 5-325mg 5mg-325mg 1 tab PO Q6H PRN PRN Pain 3 days #12 TABLETS 03/11/23 [Rx Last Taken Unknown] ondansetron 4 mg disintegrating tablet 4 mg PO TID PRN nausea and vomiting #21 tabs 03/11/23 [Rx Last Taken Unknown] Allergy/AdvReac Type Severity Reaction Status Date / Time aripiprazole [From Abilify] Allergy Intermediate Other Verified 03/11/23 00:41 citalopram [From Celexa] Allergy Intermediate Other Verified 03/11/23 00:41 fluoxetine Allergy Intermediate Other Verified 03/11/23 00:41 paroxetine [From Paxil] Allergy Intermediate Other Verified 03/11/23 00:41 ciprofloxacin AdvReac Nausea/Vom/ Verified 03/11/23 00:41 Diarrhea Family History Father Arthritis Hypertension Afib Surgical History H/O mastectomy Social History household members: significant other housing: house current occupational status: employed Smoking Status: Former smoker alcohol intake: current alcohol intake frequency: a few times a week substance use type: former substance user what type of physical activity do you participate in: none do you feel safe at home: Yes ROS ROS ED Constitutional Constitutional ED: Denies chills or fever(s) Eyes Eyes: Denies blurry vision or change in vision ENT ENT ED: Reports other Details: Positive facial pain/laceration ; Denies sore throat Cardiovascular Cardiovascular: Reports other Details: Negative syncope ; Denies chest pain Respiratory/Chest Respiratory/Chest: Denies cough or dyspnea Gastrointestinal Gastrointestinal: Denies abdominal pain, diarrhea, nausea or vomiting Genitourinary Genitourinary ED: Denies dysuria Musculoskeletal Musculoskeletal: Denies back pain, myalgias or neck pain Integumentary Reports other Details: Positive facial laceration ; Denies rash Neurologic Neurologic: Denies headache(s) or paresthesias Hematologic/Lymphatic Hematologic/Lymphatic: Denies easy bleeding or easy bruising EXAM Physical Exam Const Vital Signs: 03/11/23 01:21 03/11/23 04:54 Pulse Rate 70 Respiratory Rate 15 Respiratory Effort Normal Non-Labored Respiratory Depth Normal Respiratory Pattern Normal Blood Pressure 119/71 Blood Pressure Mean 87 Pulse Ox 95 Oxygen Delivery Method Room Air Positive well nourished and well developed General Appearance ED: well developed HEENT HEENT Narrative: No signs of depressed or basilar skull fracture Patient does have a subcutaneous layer deep 2.5 cm laceration that is jagged in nature with minimal ooze of blood and no foreign body along the lower portion of the lower lip right along the vermilion border. There is a second laceration that is half a centimeter in length subcutaneous layer deep along the right lateral lip tissue with minimal ooze of blood and no foreign body The patient then has a complex essentially full-thickness layer deep circular and jagged laceration along the midportion of the upper lip that extends up towards the nasolabial folds. This wound is 4 cm in length. There is mild ooze of blood without foreign body. The laceration crosses into the vermilion border and also extends into the lip tissue No septal hematoma noted No signs of dental fracture or jaw fracture noted Eyes EOMs intact bilaterally Eyes Narrative: Pupils are dilated and sluggish to respond to light with scleral injection bilaterally consistent with alcohol use No hyphema noted Neck supple Neck Narrative: No midline pain with palpation no bony deformity or step-off of the cervical spine Chest Wall palpation of chest normal Chest Narrative: No bony deformity or crepitance Resp normal respiratory effort and clear to auscultation bilaterally Cardio regular rate and regular rhythm GI normal to inspection, nondistended, normoactive bowel sounds, non-tender, non-distended and no masses Auscultation: normoactive bowel sounds Palpation: soft Back/Spine Back/Spine Narrative: No bony deformity or step-off of the thoracic or lumbar spine no midline pain with palpation Extremity normal to inspection Extremity Narrative: No injuries noted Neuro oriented x3, CN's II-XII intact bilaterally and no sensory deficits noted Sensorium / Orientation: alert Motor Exam: strength 5/5 throughout Psych mental status grossly normal Skin Skin Narrative: Lacerations to the face as documented above MDM MDM MDM Narrative Medical decision making narrative: Patient presented to the ER hypertensive and slightly tachycardic. He reported mechanical fall so I felt no need for cardiac or syncope workup. With the trauma to his head/face and the history of alcohol use throughout the day I did recommend that he undergo a head face and spine CT in order to rule out underlying injury. As differential diagnosis does include skull fracture versus subdural or epidural hematoma compression fracture of the cervical spine or facial fracture/jaw fracture. The patient is medically sober he is awake alert and oriented and understands the risks of not doing so and is still competent to make his decision and reports that he does not want any type of imaging/testing performed but simply for his face to be sutured. Therefore the wounds were sutured as documented below. As there is high risk for potential infection associated with this he will be placed on Augmentin. He will also be advised to follow-up plastic surgery as there may be need for reconstruction as there is potential that the upper lip tissue will off as it was held on by a small piece of tissue Patient had his face/lip cleaned with chlorhexidine. The lower lip was anesthetized using 3 mL of 1% lidocaine with epinephrine in local fashion. The wound was copiously irrigated with normal saline. Then eight 5-0 Ethilon sutures were placed into the lower lip in simple interrupted fashion to bring the wound together good approximation. The patient then had 1 mL of 1% lidocaine with epinephrine injected into the right lateral lower lip wound. Two 5-0 Ethilon sutures were then placed into this laceration also in simple interrupted fashion to bring the wound together good approximation. Patient had the upper lip laceration cleaned with chlorhexidine as well as hydroperoxide. The wound was anesthetized with 5 mL of 1% lidocaine with epinephrine in local fashion. The wound was irrigated with copious amounts of normal saline. Then a total of 25 5-0 Vicryl sutures were placed into the upper lip wound to close the site and bring together with good approximation. Patient tolerated procedure well without complication History & Record Review Discussion w/independent historian: Patient and Family Discharge Plan Triage Chief Complaint: Fall ED Provider: Rip Salomon Dx/Rx/DC Orders Clinical Impression: Closed head injury, Complex laceration of face Instructions: ED Head Injury (Adult), ED Laceration, All Closures Prescriptions: New amoxicillin-pot clavulanate 875-125 mg tablet 1 tab PO BID 10 Days Qty: 20 0RF ondansetron 4 mg tablet,disintegrating 4 mg PO TID PRN (Reason: nausea and vomiting) Qty: 21 0RF hydrocodone-acetaminophen 5-325 mg tablet 1 tab PO Q6H PRN PRN (Reason: Pain) 3 Days Qty: 12 0RF Primary Care Provider: Care Physician,No Primary Referrals: Asif Osborne MD [Med Staff - Active Staff] - Care Physician,No Primary [Primary Care Provider] - Activity Restrictions/Additional Instructions: Please have the lower lip sutures removed in the next 7 days and this can be done at your family doctor or if you return to the ER or even by the plastic surgeon. The upper lip laceration was closed with dissolvable sutures. As this was a complex laceration to your face/lip I recommend following up with plastic surgery to discuss any need for outpatient surgical reconstruction. Take the Augmentin to prevent infection and return to the ER should you have any further concerns. Disposition Disposition: Home, Self Care Discharge Date/Time: 03/11/23 05:24
[2023-03-11 04:54] VITALS: BP 119/71; PULSE 70; RESP 15; O2SAT 95
[2023-03-11] MEDS: Amox/Clavulanate 875 MG Tablet PO (05:18)
[2023-03-11] MEDS: Ondansetron ODT 4 MG Tablet PO (05:18)
[2023-03-11] MEDS: HYDROcodone Bitartrate/Apap 5/325 Tablet PO (05:19)
== END 2023-03-11 05:24 | disposition home or self-care (01) ==
PROVIDERS: Emergency Provider Emergency Medicine; Visit Provider Emergency Medicine
DX: S01.511A Laceration without foreign body of lip, initial encounter (principal); Z87.891 Personal history of nicotine dependence; W10.9XXA Fall (on) (from) unspecified stairs and steps, initial encounter
CPT/HCPCS: 96374; 96375; 99284; A4216; J2405

== ENCOUNTER → 2023-07-03 | Outpatient (CLI) | payer BC, SELFPAY ==
[2023-07-03 10:08] LABS: Absolute Lymphocyte Count 2.09 X10^3/uL (0.83-4.51); Absolute Neutrophil Count 2.5 X10^3/uL (2.0-7.7); Basophil# 0.05 X10^3/uL; Basophil% 0.9 % (0-1); Eosinophil# 0.28 X10^3/uL; Eosinophils% 5.2 % (0-5); Hematocrit 46.2 % (40-54); Hemoglobin 15.9 g/dL (13.0-16.5); Lymphocyte # 2.09 X10^3/ul (0.83-4.51); Mean Corp Hgb Conc 34.4 g/dL (32-36); Mean Corpuscular Hgb 29.6 pg (27.0-32.0); Mean Corpuscular Volume 85.9 fL (80-94); Mean Platelet Vol. 10.8 fl (6.2-12.0); Monocyte# 0.45 X10^3/uL; Monocyte% 8.4 % (0-10); NRBC Flagged by Analyzer 0 % (0-5); Neutrophil # 2.45 X10^3/uL (2.7-7.7); Neutrophil % 45.8 % (47-70); Platelet Count 200 K/mm3 (150-450); RBC Distribution Width CV 12.2 % (11.6-14.6); RBC Distribution Width SD 37.9 fl (35.1-43.9); Red Blood Count 5.38 M/mm3 (4.6-6.2); White Blood Count 5.4 K/mm3 (4.4-11.0)
[2023-07-03 10:31] LABS: ALB/GLOB Ratio 1.1 RATIO (0.9-2.4); AST(SGOT) 25 U/L (15-37); Alanine Aminotransfer ALT/SGPT 56 U/L (16-61); Albumin, Serum 3.9 g/dL (3.2-5.0); Alkaline Phosphatase 55 U/L (45-117); Anion Gap 5 (5-15); BUN 20 mg/dL (7-18); BUN/Creat Ratio 18.5 RATIO (10-20); Calcium,Total 9.6 mg/dL (8.5-10.1); Chloride 108 mmol/L (98-107); Creatinine, Serum 1.08 mg/dL (0.70-1.30); EST Glomerular Filtration Rate 84 mL/min (>60); Est Glom Filt Rate - Afr Amer 102 mL/min (>60); Globulin 3.4 g/dL (2.2-4.2); Glucose 98 mg/dL (74-106); Lipase 34 U/L (13-75); Magnesium 2.2 mg/dL (1.6-2.6); Potassium 4.1 mmol/L (3.5-5.1); Protein, Total 7.3 g/dL (6.4-8.2); Sodium Level 140 mmol/L (136-145)
[2023-07-04 16:10] LABS: Deamidated Gliadin IgA 4 units (0-19); Deamidated Gliadin IgG 3 units (0-19); Endomysial Antibody IgA Negative (Negative); Immunoglobulin A 145 mg/dL (90-386); t-Transglutaminase IgA <2 U/mL (0-3)
== END | disposition home or self-care (01) ==
LOC: MFPLAB 09:03
PROVIDERS: Visit Provider Family Medicine
DX: R19.7 Diarrhea, unspecified (principal); R10.9 Unspecified abdominal pain
CPT/HCPCS: 36415; 80053; 82784; 83516; 83690; 83735; 85025; 86255

== ENCOUNTER → 2023-07-04 | Outpatient (CLI) | payer BC, SELFPAY ==
[2023-07-10 01:07] LABS: Calprotectin, Stool 11 ug/g (0-120)
== END | disposition home or self-care (01) ==
PROVIDERS: PCP Family Medicine; Referring Provider Family Medicine; Visit Provider Family Medicine
DX: R19.7 Diarrhea, unspecified (principal); R10.9 Unspecified abdominal pain
CPT/HCPCS: 82274; 82653; 83630; 83993; 87177; 87209; 87493; 87506

== ENCOUNTER → 2024-06-17 | Outpatient (CLI) | payer BC, SELFPAY ==
--- NOTE | 2024-06-17 12:44 | CT_ITS ---
PROCEDURE: SINUS/FACIAL BONE REASON FOR EXAM: SINUSITIS TECHNIQUE: CT of the paranasal sinuses without contrast. Coronal and Sagittal reconstruction series were provided. One or more dose reduction techniques were used (e.g., Automated exposure control, adjustment of the mA and/or kV according to patient size, use of iterative reconstruction technique). COMPARISON: None. FINDINGS: Frontal: Within normal limits. Ethmoid: Within normal limits Sphenoid: Within normal limits Maxillary: Small polyps/mucous retention cyst seen within the bilateral maxillary sinuses. Turbinates: Within normal limits. Nasal Septum: Midline Mastoids/Middle Ears: Well aerated CT/Sinus/Facial Bone IMPRESSION: Small polyps/mucous retention cyst seen within the bilateral maxillary sinuses. No evidence of sinusitis. Reading Location: [id number]
== END | disposition home or self-care (01) ==
LOC: CT 12:38
PROVIDERS: PCP Family Medicine; Referring Provider Otolaryngology; Visit Provider Otolaryngology
DX: J32.9 Chronic sinusitis, unspecified (principal)
CPT/HCPCS: 70486

== ENCOUNTER → 2024-10-05 | Outpatient (CLI) | payer BC, SELFPAY ==
--- NOTE | 2024-10-05 08:50 | MRI_ITS ---
PROCEDURE: TMJ/BILAT 10/05/2024 REASON FOR EXAM: LEFT TMJ DISORDER TECHNIQUE: T1, T2, PD, TMJ/BILAT Closed and open mouth imaging. Multiplanar and multisequence images were obtained. COMPARISON: None FINDINGS: There is normal marrow signal in the mandible and temporal bones with no occult fracture, or joint space narrowing. Mucosal thickening is visible in the right and left maxillary sinus. Right: The articular disc is normally positioned between the mandibular condyle and the temporal bone in both open and closed positions. There is normal anterior translation of the mandibular condyle with jaw opening. Left: The articular disc is normally positioned between the mandibular condyle and the temporal bone in both open and closed positions. There is normal anterior translation of the mandibular condyle with jaw opening. MRI/TMJ/Bilat IMPRESSION: Normal temporomandibular joints. Reading Location: [id number]
== END | disposition home or self-care (01) ==
LOC: OPMRI 08:19
PROVIDERS: PCP Family Medicine
DX: M26.633 Articular disc disorder of bilateral temporomandibular joint (principal)
CPT/HCPCS: 70336